=== PATIENT | male | born 1965 | race Caucasian/White ===

== ENCOUNTER 2018-02-12 09:16 | Outpatient (CLI) | payer MEDICAID ==
[2018-02-12] MEDS ORDERED: ISOVUE-370 76%-LOCM 1 ML ONE (11:00)
== END 2018-02-12 09:17 | disposition home or self-care (01) ==
LOC: BICCT 09:16
PROVIDERS: ATTEND Internal Medicine Hematology & Oncology
DX: C20 Malignant neoplasm of rectum (principal); R60.0 Localized edema
CPT/HCPCS: 74177

== ENCOUNTER 2018-04-30 09:10 | Day surgery (SDC) | payer OTHER ==
[2018-04-30] MEDS ORDERED: Sodium Chloride 0.9% 20 ML ONE (09:27)
[2018-04-30] MEDS ORDERED: Ondansetron 2MG/ML MDV 10 MG, Dexamethasone 10 MG in Sodium Chloride 0.9% 50 ML IVP SCH (09:30)
[2018-04-30] MEDS ORDERED: Atropine Sulfate 0.25 MG, Admixture Fee 1 EACH in Sodium Chloride 0.9% 50 ML IVPB SCH (09:30)
[2018-04-30] MEDS ORDERED: Fluorouracil 900 MG in Sodium Chloride 0.9% 50 ML IVPB SCH (09:30)
[2018-04-30] MEDS ORDERED: IRINOTECAN HCL IVPB SCH (09:30)
[2018-04-30] MEDS ORDERED: Leucovorin Calcium 50 MG in Sodium Chloride 0.9% 500 ML IVPB SCH (09:30)
[2018-04-30] MEDS ORDERED: SODIUM CHLORIDE 0.9% IVPB SCH (09:30)
[2018-04-30 09:44] VITALS: BP 152/79; TEMP 98.7
== END 2018-04-30 13:30 | disposition home or self-care (01) ==
LOC: ONC/OP 09:10
PROVIDERS: ATTEND Internal Medicine Hematology & Oncology
DX: Z51.11 Encounter for antineoplastic chemotherapy (principal); C20 Malignant neoplasm of rectum; K21.9 Gastro-esophageal reflux disease without esophagitis; E78.5 Hyperlipidemia, unspecified; E11.9 Type 2 diabetes mellitus without complications; I10 Essential (primary) hypertension; I25.10 Atherosclerotic heart disease of native coronary artery without angina pectoris; Z98.890 Other specified postprocedural states; Z95.1 Presence of aortocoronary bypass graft; Z87.891 Personal history of nicotine dependence; Z88.0 Allergy status to penicillin; Z79.82 Long term (current) use of aspirin; Z79.899 Other long term (current) drug therapy
CPT/HCPCS: 96367; 96413; 96416; 96417; A4216; J0461; J0640; J1100; J2405; J7050; J9190; J9206

== ENCOUNTER 2018-11-07 00:39 | Day surgery (SDC) | payer OTHER ==
[2018-11-07] MEDS ORDERED: Atropine Sulfate 0.25 MG, Admixture Fee 1 EACH in Sodium Chloride 0.9% 50 ML IVPB SCH (03:15)
[2018-11-07] MEDS ORDERED: Irinotecan 250 MG in Sodium Chloride 0.9% 500 ML IVPB SCH (03:30)
[2018-11-07] MEDS ORDERED: Fluorouracil 900 MG in Sodium Chloride 0.9% 50 ML IVPB SCH (03:30)
[2018-11-07] MEDS ORDERED: Leucovorin Calcium 50 MG in Sodium Chloride 0.9% 500 ML IVPB SCH (03:30)
[2018-11-07] MEDS ORDERED: Palonosetron HCl 0.25 MG in Sodium Chloride 0.9% 50 ML IVPB SCH (03:45)
[2018-11-07] MEDS ORDERED: Bevacizumab 500 MG in Sodium Chloride 0.9% 80 ML IVPB SCH (03:45)
[2018-11-07] MEDS ORDERED: Dexamethasone 10 MG in Sodium Chloride 0.9% 50 ML IVPB SCH (03:45)
[2018-11-07] MEDS ORDERED: PALONOSETRON HCL 0.05 MG/ML 5 ML VIAL IVP SCH (08:45)
[2018-11-07] MEDS ORDERED: Dexamethasone 10 MG/ML VIAL SLOW IVP SCH (08:45)
[2018-11-07] MEDS ORDERED: Sodium Chloride 0.9% 30 ML ONE (09:29)
[2018-11-07 11:02] VITALS: BP 97/56; TEMP 98.2
== END 2018-11-07 13:50 | disposition home or self-care (01) ==
LOC: ONC/OP 00:39
PROVIDERS: ATTEND Internal Medicine Hematology & Oncology
DX: Z51.11 Encounter for antineoplastic chemotherapy (principal); C20 Malignant neoplasm of rectum
CPT/HCPCS: 96367; 96375; 96413; 96416; 96417; J0461; J0640; J1100; J2469; J7050; J9035; J9190; J9206

== ENCOUNTER 2018-11-27 09:07 | Day surgery (SDC) | payer OTHER ==
[~2018-11-27 09:07] MED LIST: Atropine Sulfate 0.25 MG, Admixture Fee 1 EACH in Sodium Chloride 0.9% 50 ML IVPB SCH; Dexamethasone 10 MG in Sodium Chloride 0.9% 50 ML IVPB SCH; Fluorouracil 900 MG in Sodium Chloride 0.9% 50 ML IVPB SCH; IRINOTECAN IVPB SCH; Leucovorin Calcium 50 MG in Sodium Chloride 0.9% 500 ML IVPB SCH; Palonosetron HCl 0.25 MG in Sodium Chloride 0.9% 50 ML IVPB SCH; SODIUM CHLORIDE 0.9% IVPB SCH
[2018-11-27] MEDS ORDERED: Sodium Chloride 0.9% 20 ML ONE (09:12)
[2018-11-27 09:53] VITALS: BP 192/93
== END 2018-11-27 14:45 | disposition home or self-care (01) ==
LOC: ONC/OP 09:07
PROVIDERS: ATTEND Internal Medicine Hematology & Oncology
DX: Z51.11 Encounter for antineoplastic chemotherapy (principal); C20 Malignant neoplasm of rectum; Z88.0 Allergy status to penicillin
CPT/HCPCS: 96367; 96375; 96413; 96415; 96417; J0461; J0640; J1100; J2469; J7050; J9190; J9206

== ENCOUNTER 2018-12-25 11:59 | Day surgery (SDC) | payer OTHER ==
[~2018-12-25 11:59] MED LIST changes: +Bevacizumab 500 MG in Sodium Chloride 0.9% 80 ML IVPB SCH; -Dexamethasone 10 MG in Sodium Chloride 0.9% 50 ML IVPB SCH; +Dexamethasone 10 MG/ML VIAL SLOW IVP SCH; +PALONOSETRON HCL 0.05 MG/ML 5 ML VIAL IVP SCH; -Palonosetron HCl 0.25 MG in Sodium Chloride 0.9% 50 ML IVPB SCH
== END 2018-12-25 16:13 | disposition home or self-care (01) ==
LOC: ONC/OP 11:59
PROVIDERS: ATTEND Internal Medicine Hematology & Oncology
DX: Z51.11 Encounter for antineoplastic chemotherapy (principal); C20 Malignant neoplasm of rectum; Z88.0 Allergy status to penicillin
CPT/HCPCS: 80053; 82248; 82378; 83615; 84100; 84550; 96367; 96375; 96413; 96417; J0461; J0640; J1100; J2469; J7050; J9035; J9190; J9206

== ENCOUNTER 2019-01-15 09:03 | Day surgery (SDC) | payer OTHER ==
[2019-01-15] MEDS ORDERED: Sodium Chloride 0.9% 20 ML ONE (09:06)
[2019-01-15 09:40] VITALS: BP 175/84; TEMP 98
== END 2019-01-15 12:49 | disposition home or self-care (01) ==
LOC: ONC/OP 09:03
PROVIDERS: ATTEND Internal Medicine Hematology & Oncology
DX: Z51.11 Encounter for antineoplastic chemotherapy (principal); C20 Malignant neoplasm of rectum; Z88.0 Allergy status to penicillin
CPT/HCPCS: 96367; 96375; 96413; 96415; 96417; J0461; J0640; J1100; J2469; J3490; J7050; J9035; J9190; J9206

== ENCOUNTER 2019-01-21 09:22 | Outpatient (CLI) | payer OTHER ==
--- NOTE | 2019-01-21 11:11 | CT ---
CT ABDOMEN AND PELVIS WITH IV CONTRAST: Date: 01/21/19 PROVIDED CLINICAL HISTORY: Malignant neoplasm of rectum. FINDINGS: Comparison made with study dated 10/01/18. Interval development of small bilateral pleural effusions. The visualized lung bases are otherwise fr ee of significant opacity. Multiple stable hypodense hepatic lesions. No evidence for new lesion. The spleen, pancreas, kidneys, and adrenal glands demonstrate an unremarkable CT appearance. The previously described laureen hepatic and retroperitoneal lymph node prominence is redemonstrated, w ithout significant change. Postoperative changes are noted in the region of the rectosigmoid junction. There is prominence of th e mucosa in this region that may reflect post treatment change. There is mild stranding in the perire ctal fat, likely also post treatment in nature and appearing less conspicuous than on prior. There is no bowel dilatation, inflammatory fat stranding, or free fluid apparent. The osseous structu res demonstrate no concerning lytic or blastic lesions. Scattered vascular calcifications are seen. IMPRESSION: 1. Interval development of small bilateral pleural effusions. 2. No significant interval change involving hepatic metastatic lesions or abdominal lymph node enlar gement. POS: OFF
[2019-01-21] MEDS ORDERED: Iopamidol 370 76% 100 ML VIAL ONE (13:01)
== END 2019-01-21 09:23 | disposition home or self-care (01) ==
LOC: CT 09:22
PROVIDERS: ATTEND Internal Medicine Hematology & Oncology
DX: C18.9 Malignant neoplasm of colon, unspecified (principal); C78.7 Secondary malignant neoplasm of liver and intrahepatic bile duct; J90 Pleural effusion, not elsewhere classified
CPT/HCPCS: 74177; Q9967

== ENCOUNTER 2019-02-05 10:43 | Day surgery (SDC) | payer OTHER ==
[~2019-02-05 10:43] MED LIST changes: -Dexamethasone 10 MG/ML VIAL SLOW IVP SCH; -PALONOSETRON HCL 0.05 MG/ML 5 ML VIAL IVP SCH; +Palonosetron HCl 0.25 MG in Sodium Chloride 0.9% 50 ML IVPB SCH
[2019-02-05] MEDS ORDERED: Sodium Chloride 0.9% 20 ML ONE (11:37)
[2019-02-05 11:41] VITALS: BP 174/84; TEMP 97.9
[2019-02-05 13:31] LABS: Bilirubin Negative (Negative); Blood, Urine Moderate (Negative); Clarity CLEAR (Clear); Glucose, Urine (Dipstick) 250 mg/dL (Negative); Leukocyte Negative (Negative); Nitrite Negative (Negative); Protein, Urine (Dipstick) 300 mg/dL (Neg-Trace); Specific Gravity, Urine 1.017 (1.002-1.036); Urobilinogen 0.2 mg/dL (0.2-1.0)
[2019-02-05 13:33] LABS: Bacteria/HPF None Seen HPF (None Seen); Hyaline Casts/LPF 4-6 HYALINE CAST LPF (0-3 Hyaline); Pathc Cast-AUWi Flag 0.95 (0-2.49); Squamous Epithelial 0-3 HPF (0-3); WBC/HPF 0-3 HPF (0-3)
[2019-02-05 13:40] LABS: Renal Epithelial None Seen HPF (0-3); Transitional Epithelial NONE SEEN HPF (0-3)
== END 2019-02-05 16:15 | disposition home or self-care (01) ==
LOC: ONC/OP 10:43
PROVIDERS: ATTEND Internal Medicine Hematology & Oncology
DX: Z51.11 Encounter for antineoplastic chemotherapy (principal); C20 Malignant neoplasm of rectum; Z88.0 Allergy status to penicillin
CPT/HCPCS: 36415; 80053; 81003; 81015; 82248; 82378; 83615; 84100; 84550; 87086; 96367; 96375; 96413; 96417; J0461; J0640; J1100; J2469; J3490; J7050; J9035; J9190

== ENCOUNTER 2019-02-26 11:28 | Day surgery (SDC) | payer OTHER ==
[~2019-02-26 11:28] MED LIST changes: +Bevacizumab 100 MG, Bevacizumab 400 MG in Sodium Chloride 0.9% 80 ML IVPB SCH; -IRINOTECAN IVPB SCH; -SODIUM CHLORIDE 0.9% IVPB SCH
[2019-02-26] MEDS ORDERED: Sodium Chloride 0.9% 20 ML ONE (11:55)
[2019-02-26 13:01] VITALS: BP 195/95; TEMP 97.7
== END 2019-02-26 15:04 | disposition home or self-care (01) ==
LOC: ONC/OP 11:28
PROVIDERS: ATTEND Internal Medicine Hematology & Oncology
DX: Z51.11 Encounter for antineoplastic chemotherapy (principal); C20 Malignant neoplasm of rectum; Z88.0 Allergy status to penicillin
CPT/HCPCS: 36415; 80053; 82248; 82378; 83615; 84100; 84550; 96367; 96375; 96413; 96417; J0461; J0640; J1100; J2469; J3490; J7050; J9035; J9190

== ENCOUNTER 2019-03-26 10:09 | Day surgery (SDC) | payer OTHER ==
[~2019-03-26 10:09] MED LIST changes: -Atropine Sulfate 0.25 MG, Admixture Fee 1 EACH in Sodium Chloride 0.9% 50 ML IVPB SCH; -Bevacizumab 500 MG in Sodium Chloride 0.9% 80 ML IVPB SCH
[2019-03-26] MEDS ORDERED: Sodium Chloride 0.9% 20 ML ONE (10:16)
== END 2019-03-26 14:49 | disposition home or self-care (01) ==
LOC: ONC/OP 10:09
PROVIDERS: ATTEND Internal Medicine Hematology & Oncology
DX: Z51.11 Encounter for antineoplastic chemotherapy (principal); C20 Malignant neoplasm of rectum; K21.9 Gastro-esophageal reflux disease without esophagitis; E78.5 Hyperlipidemia, unspecified; I10 Essential (primary) hypertension; E11.9 Type 2 diabetes mellitus without complications; I25.10 Atherosclerotic heart disease of native coronary artery without angina pectoris; Z87.891 Personal history of nicotine dependence; Z79.4 Long term (current) use of insulin; Z79.82 Long term (current) use of aspirin; Z79.899 Other long term (current) drug therapy; Z88.0 Allergy status to penicillin; Z95.1 Presence of aortocoronary bypass graft; Z98.890 Other specified postprocedural states
CPT/HCPCS: 36415; 80053; 82248; 82378; 83615; 84100; 84550; 96367; 96375; 96413; 96417; J0640; J1100; J2469; J3490; J7050; J9035; J9190

== ENCOUNTER 2019-04-22 08:11 | Outpatient (CLI) | payer OTHER ==
--- NOTE | 2019-04-22 09:17 | CT ---
CT ABDOMEN AND PELVIS WITH ORAL AND IV CONTRAST: HISTORY: Malignant neoplasm of rectum COMPARISON: 01/21/2019 FINDINGS: Small bilateral pleural effusions are again seen within mild interval increase in size of the left pl eural effusion. Multiple hypodense hepatic lesions are stable. No new liver lesions are seen. The spleen, pancreas, a drenal glands and kidneys are unremarkable. Deena hepatic and retroperitoneal lymph node prominence is stable. No free air is seen. No ascites is noted. Postop changes in the region of the rectosigmoid are again seen with mild stranding in the perirectal fat which is stable. There is edema in the wall of the gallbladder which is new. The small bowel loops are not abnormally dilated. A normal-appearing appendix is present. There are vascular calcifications without evidence of aneurysmal dilatation of the abdominal aorta. T here are degenerative changes in the spine. No osteolytic or osteoblastic lesions are noted. IMPRESSION: 1. Mild interval increase in the size of the left pleural effusion since 01/21/2019. 2. Edema in the wall of the gallbladder. If there is concern for acute cholecystitis evaluation with ultrasound and HIDA scan would be helpful. 3. Stable hepatic metastatic disease.
[2019-04-22] MEDS ORDERED: Iopamidol 370 76% 100 ML VIAL ONE (14:44)
== END 2019-04-22 08:12 | disposition home or self-care (01) ==
LOC: CT 08:11
PROVIDERS: ATTEND Internal Medicine Hematology & Oncology
DX: C20 Malignant neoplasm of rectum (principal); J90 Pleural effusion, not elsewhere classified; C78.7 Secondary malignant neoplasm of liver and intrahepatic bile duct; K82.8 Other specified diseases of gallbladder
CPT/HCPCS: 74177; 82565; Q9967

== ENCOUNTER 2019-07-16 11:00 | Day surgery (SDC) | payer OTHER ==
[~2019-07-16 11:00] MED LIST changes: +Atropine Sulfate 0.25 MG in Sodium Chloride 0.9% 50 ML IVPB SCH
[2019-07-16 11:50] VITALS: BP 149/74; TEMP 98.1
== END 2019-07-16 14:22 | disposition home or self-care (01) ==
LOC: ONC/OP 11:00
PROVIDERS: ATTEND Internal Medicine Hematology & Oncology
DX: Z51.11 Encounter for antineoplastic chemotherapy (principal); C20 Malignant neoplasm of rectum; Z88.0 Allergy status to penicillin
CPT/HCPCS: 36415; 80053; 82248; 82378; 83615; 84100; 84550; 96375; 96413; 96416; 96417; J0461; J1100; J2469; J3490; J9035; J9190

== ENCOUNTER 2019-07-29 19:10 | Inpatient (IN) | payer OTHER ==
[~2019-07-29 19:10] MED LIST changes: -Atropine Sulfate 0.25 MG in Sodium Chloride 0.9% 50 ML IVPB SCH; -Bevacizumab 100 MG, Bevacizumab 400 MG in Sodium Chloride 0.9% 80 ML IVPB SCH; -Fluorouracil 900 MG in Sodium Chloride 0.9% 50 ML IVPB SCH; +Iopamidol 370 76% 100 ML VIAL ONE; -Leucovorin Calcium 50 MG in Sodium Chloride 0.9% 500 ML IVPB SCH; -Palonosetron HCl 0.25 MG in Sodium Chloride 0.9% 50 ML IVPB SCH
[2019-07-29 19:35] LABS: #Eosinphils 0.3 thou/uL (0.0-0.7); #Monocytes 0.5 thou/uL (0.11-0.59); %Basophils 0.4 % (0.0-1.0); %Eosinophils 3.4 % (0.0-10.0); %Lymphocytes 11.3 % (21.0-51.0); %Monocytes 5.8 % (0.0-10.0); %Neutrophils 79.2 % (42.0-75.0); Hemoglobin 10.6 g/dL (14.0-18.0); Mean Corpuscular HGB CONC 32.2 g/dL (32.0-36.0); Mean Corpuscular Hemoglobin 28.5 pg (27.0-31.0); Mean Corpuscular Volume 88.4 fL (78.0-98.0); Mean Platelet Volume 7.9 fL (7.4-10.4); Platelet Count 223 thou/uL (130-400); RBC Distribution Width 17.3 % (11.5-14.5); Red Blood Cell (RBC) Count 3.72 mill/uL (4.70-6.10); White Blood Cell (WBC) Count 8.9 thou/uL (4.8-10.8)
[2019-07-29 19:42] LABS: PTT 34.4 SEC (22.9-36.1); Prothrombin Time 13.3 SEC (12.0-14.7)
--- NOTE | 2019-07-29 19:44 | CT ---
HEAD CT WITHOUT CONTRAST: 07/29/19 COMPARISON: 08/26/17 HISTORY: Right sided numbness and hypertension. TECHNIQUE: Axial CT imaging at 5 mm intervals from vertex through skull base without contrast. FINDINGS: No intracranial hemorrhage, midline shift, mass effect or ventricular enlargement. Imaged paranasal s inuses and mastoid air cells are unremarkable. IMPRESSION: No acute findings. Results called to Dr. Jaime at 7:34 p.m., 07/29/19. Code CESAR POS: KERRI
[2019-07-29 19:47] LABS: ALT (SGPT) 9 U/L (8-55); AST (SGOT) 13 U/L (5-34); Albumin 2.8 g/dL (3.5-5.0); Alkaline Phosphatase 114 U/L (40-110); Anion Gap 11 mmol/L (10-20); BUN (Urea Nitrogen) 25 mg/dL (8.4-25.7); Bilirubin, Total 0.4 mg/dL (0.2-1.2); CK (CPK) 90 U/L (30-200); Calc. Creatinine Clearance 0 mL/min (70-130); Calcium 8.5 mg/dL (7.8-10.44); Carbon Dioxide 24 mmol/L (22-29); Chloride 108 mmol/L (98-107); Estimated GFR-MDRD 40; Globulin 3.4 g/dL (2.4-3.5); Glucose 76 mg/dL (70-105); Lipase 19 U/L (8-78); Potassium 4.3 mmol/L (3.5-5.1); Protein, Total 6.2 g/dL (6.0-8.3); Sodium 139 mmol/L (136-145)
--- NOTE | 2019-07-29 19:50 | RAD ---
Chest one view HISTORY: Altered mental status. Dyspnea. COMPARISON: 10/01/2018. FINDINGS: Cardiac silhouette is magnified by projection. Pulmonary vasculature upper limits of normal . Mediastinum is midline with postoperative changes and a right internal jugular Port-A-Cath. No confluent airspace consolidation or evidence of pneumothorax. IMPRESSION: Borderline pulmonary vascular prominence. No florid edema.
[2019-07-29] MEDS ORDERED: hydrALAZINE 20 MG/ML VIAL ONE ×2 (19:54→20:33)
[2019-07-29] MEDS ORDERED: Aspirin Chewable 81 MG TAB ONE (19:54)
[2019-07-29] MEDS ORDERED: Nitroglycerin 2% Ointment 1 INCH/1 GM Packet ONE (20:33)
--- NOTE | 2019-07-29 21:31 | PDOC.FPRHP ---
- History of Present Illness Chief Complaint: Right-sided numbness History of Present Illness: 53yo CM with h/o colon cancer currently undergoing chemotherapy, DMII, CAD s/p CABG in 2016, CHF, and CKD who presents for right-sided numbness. States 3 hours ago started having right sided face and right arm numbness. Pt has neuropathy in his fingers but reports the numbness is new. Pt reports still having numbness. Pt denies any weakness. Pt reports pain in his face and arm describing as tingling sensation. Pt reports center of back below neck has been hurting. Pt reports having chest pressure for the last 5-6 days. Reports similar to heart attack in the past. Denies any n/v. Chest pressure made worse with movement. Pt reports being SOB all the time, no acute changes. Pt reports using 5 pillows to sleep upright, however no acute changes. Denies any swelling in his legs or feet. Pt reports being legally blind. Pt reports always seeing floaters. Pt denies any speech trouble. Pt reports being real sweaty yesterday. Pt reports having thoughts of suicide in past but not actively suicidal. States he is on medication and it is being controlled at this time. Actively on chemo for colon cancer, 3 weeks ago last tx. Had colonoscopy a few weeks ago and everything was reported as normal. Pt reports after CABG he had to wear life vest for some time. Sees Dr. Powell who told him it has gotten better. ED Course: CT head negative, SBP 220 given hydralazine x2 with improvement to SBP 171. Family medicine called for admission. - Allergies/Adverse Reactions Allergies Allergy/AdvReac Type Severity Reaction Status Date / Time Penicillins Allergy Verified 04/30/18 09:19 - Home Medications Medication Instructions Recorded Confirmed Type Acetaminophen [Tylenol] 650 mg PO Q8H PRN 07/30/19 07/30/19 History Calcium Carbonate [Tums] 1,000 mg PO PRN PRN 07/30/19 07/30/19 History Gabapentin [Neurontin] 300 mg PO TID 07/30/19 07/30/19 History LORazepam [Lorazepam] 07/30/19 History Loperamide HCl [Imodium] 07/30/19 History Ondansetron [Zofran ODT] 8 mg PO Q8HR 07/30/19 07/30/19 History diphenhydrAMINE [Benadryl] 25 mg PO Q6HR PRN 07/30/19 07/30/19 History glipiZIDE [Glipizide] 5 mg PO DAILY 07/30/19 07/30/19 History Comments: Pt unsure of home medications. States his exwife knows his medications and can provide a list in the AM. - History PMHx: Active metastatic Colon cancer, DMII, CAD w 3v CABG (2015), peripheral neuropathy, depression with h/o SI. CKD. H/o staph bacteremia in 2018. PSHx: Floating Testicle descent, Colectomy, Knee Surgery for Staph infection. Right mediport. FHx: HTN. Breast ca in mother. Stroke and NE in father. Social: Smokes 5-6 cigarettes a day 30+py history. Denies any alcohol use, Reports hx of alcohol abuse but reports cutting back since heart attack. Denies any illicit drug use. Pt reports being full code - Review of Systems General: reports: fatigue. denies: fever/chills, weight/appetite/sleep changes , night sweats Eyes: reports: other (Pt has chronic vision changes. Denies any acute changes). denies: eye pain, vision changes ENT: denies: nasal congestion, rhinorrhea Respiratory: reports: shortness of breath (Reports as chronic), exercise intolerance. denies: cough, congestion Cardiovascular: reports: chest pain (Reports chest pressure). denies: palpitation, edema, paroxysmal nocturnal dyspnea, orthopnea Gastrointestinal: reports: diarrhea (Chronic problem). denies: nausea, vomiting , constipation, abdominal pain, GI bleeding Genitourinary: denies: incontinence, dysuria Skin: denies: rashes, lesions Musculoskeletal: reports: pain (Reports pain in center of his back below neck.) . denies: tenderness, swelling Neurological: reports: numbness (In right side of face and right arm.). denies : seizure, weakness Psychological: reports: depression (Pt reports having thoughts of suicide in recent past but is being tx with medication.). denies: anxiety - Vital signs BP: [182/82] HR: [76] RR: [18] Tmax: [98.3] Pox: [100]% on [RA] Wt: [109kg] - Physical Exam Constitutional: NAD, awake, alert and oriented, well developed HEENT: MMM, oropharynx clear Neck: supple, trachea midline Chest: other (Right mediport in place.) Heart: RRR, normal S1/S2, no murmurs/rubs/gallops, pulses present, no edema Lungs: CTAB, no respiratory distress, good air movement, no rales/rhonchi, no wheezing Abdomen: soft, non-tender, bowel sounds present, no masses/distention, no hernias Musculoskeletal: normal structure, normal tone, other (5/5 strength throughout) Neurological: no focal deficit, CN II-XII intact, normal sensation (reports numbness of RUQ and face however endorses BL equal and full sensation on exam), other (no dysmetria or dysdiadokinesia.) Skin: no rash/lesions Heme/Lymphatic: no unusual bruising or bleeding Psychiatric: other (depression, stable, no active SI/HI) FMR H&P: Results - Labs Result Diagrams: 07/29/19 19:21 07/29/19 19:21 Lab results: WBC 8.9 thou/uL (4.8-10.8) 07/29/19 19:21 Hgb 10.6 g/dL (14.0-18.0) L 07/29/19 19:21 Hct 32.9 % (42.0-52.0) L 07/29/19 19:21 MCV 88.4 fL (78.0-98.0) 07/29/19 19:21 Plt Count 223 thou/uL (130-400) 07/29/19 19:21 Neutrophils % 79.2 % (42.0-75.0) H 07/29/19 19:21 Sodium 139 mmol/L (136-145) 07/29/19 19:21 Potassium 4.3 mmol/L (3.5-5.1) 07/29/19 19:21 Chloride 108 mmol/L (98-107) H 07/29/19 19:21 Carbon Dioxide 24 mmol/L (22-29) 07/29/19 19:21 BUN 25 mg/dL (8.4-25.7) 07/29/19 19:21 Creatinine 1.80 mg/dL (0.7-1.3) H 07/29/19 19:21 Glucose 76 mg/dL (70-105) 07/29/19 19:21 Calcium 8.5 mg/dL (7.8-10.44) 07/29/19 19:21 Total Bilirubin 0.4 mg/dL (0.2-1.2) 07/29/19 19:21 AST 13 U/L (5-34) 07/29/19 19:21 ALT 9 U/L (8-55) 07/29/19 19:21 Alkaline Phosphatase 114 U/L (40-110) H 07/29/19 19:21 Creatine Kinase 90 U/L (30-200) 07/29/19 19:21 CK-MB (CK-2) 2.0 ng/mL (0-6.6) 07/29/19 19:21 B-Natriuretic Peptide 1425.7 pg/mL (0-100) H 07/29/19 19:21 Serum Total Protein 6.2 g/dL (6.0-8.3) 07/29/19 19:21 Albumin 2.8 g/dL (3.5-5.0) L 07/29/19 19:21 Lipase 19 U/L (8-78) 07/29/19 19:21 - Radiology Interpretation Chest x-ray Status: report reviewed by me (mild pulmonary vascular promenence) FMR H&P: A/P - Problem List (1) Atypical chest pain Current Visit: Yes Status: Acute Code(s): R07.89 - OTHER CHEST PAIN (2) TIA (transient ischemic attack) Current Visit: Yes Status: Suspected Code(s): G45.9 - TRANSIENT CEREBRAL ISCHEMIC ATTACK, UNSPECIFIED (3) CHF (congestive heart failure) Current Visit: Yes Status: Chronic Code(s): I50.9 - HEART FAILURE, UNSPECIFIED (4) CAD (coronary artery disease) Current Visit: Yes Status: Acute Code(s): I25.10 - ATHSCL HEART DISEASE OF [place] CORONARY ARTERY W/O ANG PCTRS Qualifiers: Coronary Disease-Associated Artery/Lesion type: bypass graft, autologous artery Associated angina: with stable angina Qualified Code(s): I25.728 - Atherosclerosis of autologous artery coronary artery bypass graft(s) with other forms of angina pectoris (5) DMII (diabetes mellitus, type 2) Current Visit: Yes Status: Chronic Qualifiers: Diabetes mellitus complication status: with neurologic complications Diabetes mellitus complication detail: with polyneuropathy (6) Colon cancer Current Visit: Yes Status: Chronic Code(s): C18.9 - MALIGNANT NEOPLASM OF COLON, UNSPECIFIED (7) HTN (hypertension) Current Visit: Yes Status: Chronic Code(s): I10 - ESSENTIAL (PRIMARY) HYPERTENSION (8) PRATEEK (acute kidney injury) Current Visit: Yes Status: Acute Code(s): N17.9 - ACUTE KIDNEY FAILURE, UNSPECIFIED (9) Depression Current Visit: Yes Status: Chronic Code(s): F32.9 - MAJOR DEPRESSIVE DISORDER, SINGLE EPISODE, UNSPECIFIED - Plan 53yo CM with h/o colon cancer currently undergoing chemotherapy, DMII, CAD s/p CABG in 2016, CHF, and CKD who presents for right-sided numbness. #TIA vs CVA - RUE and R-facial numbness/paresthesias - Neuro exam unremarkable - CT head no acute bleed - MRI in AM - FLP, A1C, TSH - Admit to neuro with neuro checks - Carotid dopplers in AM - consider neurology consult in AM pending workup - ASA 81mg daily - Permissive HTN of <220/110, prn hydralazine, restart home BP meds after 48 hours. - Consider high intensity statin pending workup in AM. #Atypical Chest Pain - Chest pressure x5d - h/o CAD - likely 2/2 mild CHF exacerbation - will trend trops - consider cards consult in AM, known to Dr. Kellogg - monitor on telemetry #Elevated troponin - Trop 0.029 - likely 2/2 CKD and CHF - Will trend #Elevated D-Dimer - D-dimer 2.25 - high risk for DVT/PE 2/2 malignancy, immobility - SOB and CP, VSS - Will order CTA for PE r/o, will consider LE doppler US if negative #PRATEEK on CKD IIIa - known CKD IIIa - Cr. 1.8, previously baseline of 1.5 - likely 2/2 CHF exacerbation and third spacing - IVF lasix x1, reeval in AM and consider continuation #CHF with mild exacerbation - Reports his EF was as low as 30%, wore a life vest at one point - will repeat ECHO - Consider Cards consult, known to Dr. Kellogg - BNP elevated to 1400, physical exam does not demonstrate fluid overload - Will give lasix 40mg IV x1 now and monitor #Colon cancer - mets to lymph nodes per pt, recent endoscopy that was "clear" actively undergoing chemotherapy [id number] - Dr. Terrell is Oncologist #CAD s/p 3v CABG in 2016 - Known to Dr. Kellogg - will restart home meds once reconciled #DMII - Hyperglycemic protocol, ACHS accuchecks, mild SSI - Will check A1C - Will restart home meds once reconciled #Depression - on home antidepressants, unsure of name of medication, will restart once home meds reconciled - currently stable with no SI #Tob abuse - 30+ py smoking history, counseled on cessation Code: Full - daughter Iesha Nicholas is MPoA VTE: Lovenox Diet: NPO at midnight for possibly cardiac intervention IVF: SL PCP: [facility] Disposition/LOS: Admit to stroke obs for atypical chest pain and TIA vs CVA. Trending trops, monitoring on tele. MRI in AM. CTA chest for PE r/o. Anticipate hospitalization < 48hours pending workup. FMR H&P: Upper Level - Pertinent history I was present with the art gallery internship during the HPI. See above HPI. I scribed the above document and made edits as needed. Pt comes in with somewhat complicated hx. Pt having R. sided numbness and having chest pressure. R. sided numbness new and acute for last few hours. Chest pain has been going on for 6 days. - Pertinent findings Neuro: CN 2-12 grossly intact. Pt reports sensation intact bilaterally in both Upper and Lower Extremities. Strength 5/5 in Upper and lower extremities bilaterally. Chest: Pain not reproducible to palpation Cardio: RRR, no murmurs or gallops Resp: CTA-B, no wheezes or crackles. Pt has some audible distress when talking. Pt tires easily Abdomen: NTTP, No masses noted. - Plan Date/Time: 07/29/192127 I, Michael Fuentes, PGY-3, have evaluated this patient and agree with findings/ plan as outlined by art gallery internship resident. Pertinent changes/additions are listed here. See above for detailed plan. I made edits to plan as above. Pt history is complicated as reports numbness but on physical exam there is no numbness reported by patient. At this time we will admit for TIA workup. CT head neg. Will get dopplers and MRI in AM. Pt having elevated BP to 180-190's. At this time will allow for permissive htn. Yet, pt has been reporting 5-6 day hx chest pressure. Reports some increased SOB at times. Pt trop is indeterminate. Pt having some atypical chest pain. Will trend trops. If pt continues to have more elevated BP and chest pressure we may tx pt more for chest pain and tx for hypertension urgency. Pt is not a very good historian. See above for detailed plan. Addendum - Attending - Attending Attestation Date/Time: 07/29/19 8712 I personally evaluated the patient and discussed the management with Dr. Bernal/ Gina. I agree with the History, Examination, Assessment and Plan documented above with any addition or exceptions noted below. 53 yo WM PMH CAD s/p CABG x3vz, uncontrolled DM2, CKD3, colorectal cancer currently undergoing chemotherapy. Presents with CC of chest pain and right arm and face numbness. States pain has been occurring for several days. Numbness started this evening. BP has been elevated. Daughter states he has had difficulty in the past with labile BP. Had been taken off meds for a while due to severe orthostatic hypotension. Has been intolerant of ACEI and ARBs. BP now consistently elevated. Exam unremarkable. CN 2-12 intact. Upper and lower extremity strength 5/5 in major muscle groups. Sensation bilaterally uniform throughout all regions. patient reports chronic diabetic neuropathy in his feet and lower legs. labs remarkable for elevated BNP, Cr above baseline at 1.8, Trop indeterminent, EKG unremarkable, CXR No acute processes, CTA (read pending ) shows left pleural effusion, no obvious filling defects. observation for TIA vs CVA r/o and CHF exacerbation, will allow permissive HTN for now but if his chest pain worsens, will attempt to lower BP. IV lasix for CHF, Trend labs, TTE tomorrow, consider cardiology consultation, MRI brain, carotid dopplers. observation, stroke <2 midnights.
[2019-07-29 22:43] LABS: Bacteria/HPF None Seen HPF (None Seen); Bilirubin Negative (Negative); Blood, Urine 2+ (Negative); Clarity Clear (Clear); Glucose, Urine (Dipstick) 100 mg/dL (Negative); Leukocyte Negative Leu/uL (Negative); Nitrite Negative (Negative); Protein, Urine (Dipstick) 300 mg/dL (Neg-Trace); Squamous Epithelial None Seen HPF (0-3); Urobilinogen Normal mg/dL (Less than 2); WBC/HPF 0-3 HPF (0-3)
[2019-07-29 22:56] LABS: Troponin I 0.035 ng/mL (< 0.028)
--- NOTE | 2019-07-30 | CT ---
CT arteriogram chest with IV contrast and 3-D imaging HISTORY: Chest pain. FINDINGS: There is good contrast opacification of the pulmonary arteries and thoracic aorta with norm al branching of the great vessels at the aortic arch. Postoperative changes mediastinum. Nonspecific scattered lymph nodes. Small amount of left pleural fluid with mild left basilar atelectasis and scattered areas of mild per ipheral scarring and atelectasis within each lung. No pneumothorax or lobar consolidation. Within the partially visualized upper abdomen, the gallbladder is again shown to be incompletely dist ended. Internal hyperdense material with small amount of pericholecystic fluid. Appearance is similar to prior CT abdomen exams. There are degenerative changes of thoracic spine. IMPRESSION: No CT evidence of pulmonary embolus. Small amount of left pleural fluid and other chronic-type findings are stable.
[2019-07-30] MEDS ORDERED: Ondansetron ODT 4 MG TAB SL PRN (02:20)
[2019-07-30] MEDS ORDERED: Ondansetron PF 4 MG/2 ML Vial IVP PRN (02:20)
[2019-07-30] MEDS ORDERED: hydrALAZINE 20 MG/ML VIAL SLOW IVP PRN (02:21)
[2019-07-30] MEDS ORDERED: Sodium Chloride 0.9% 1,000 ML IV SCH (02:30)
[2019-07-30] MEDS ORDERED: HumaLOG 300 UNITS/3 ML VIAL SC PRN ×2 (02:43)
[2019-07-30] MEDS ORDERED: Dextrose 5% in Water 1,000 ML IV PRN (02:43)
[2019-07-30] MEDS ORDERED: Dextrose 50% Abboject 50 ML SYRINGE SLOW IVP PRN (02:43)
[2019-07-30] MEDS ORDERED: Calcium Carbonate 500 MG ChewTAB PO PRN (02:43)
[2019-07-30] MEDS ORDERED: Enoxaparin Sodium 40 MG/0.4 ML SYRINGE SC SCH (02:43)
[2019-07-30] MEDS ORDERED: Furosemide 40 MG/4 ML VIAL SLOW IVP SCH ×2 (02:43→09:00)
[2019-07-30 02:52] VITALS: BMI 31.9
[2019-07-30 02:59] LABS: Troponin I 0.023 ng/mL (< 0.028)
[2019-07-30] MEDS: Acetaminophen 325 MG TAB PO PRN ×3 (03:37→16:48)
[2019-07-30 06:20] LABS: #Eosinphils 0.3 thou/uL (0.0-0.7); #Monocytes 0.7 thou/uL (0.11-0.59); #Neutrophils 6.9 thou/uL (1.40-6.50); %Basophils 0.2 % (0.0-1.0); %Eosinophils 3.1 % (0.0-10.0); %Lymphocytes 11.5 % (21.0-51.0); %Monocytes 7.4 % (0.0-10.0); %Neutrophils 77.8 % (42.0-75.0); Hemoglobin 9.2 g/dL (14.0-18.0); Mean Corpuscular HGB CONC 31.8 g/dL (32.0-36.0); Mean Corpuscular Hemoglobin 27.7 pg (27.0-31.0); Mean Corpuscular Volume 87.2 fL (78.0-98.0); Mean Platelet Volume 7.9 fL (7.4-10.4); Platelet Count 189 thou/uL (130-400); RBC Distribution Width 17.3 % (11.5-14.5); Red Blood Cell (RBC) Count 3.33 mill/uL (4.70-6.10); White Blood Cell (WBC) Count 8.8 thou/uL (4.8-10.8)
--- NOTE | 2019-07-30 06:20 | PDOC.FM ---
- Subjective Subjective: Pt reports he is continuing to have the numbness in his left hand, left face, and now is moving to his right hand. He reports no new changes in weakness. His chest pain is not currently present but comes and goes. He states it started when he was laying down. It feels like a pressure and reminds him of his OH in the past. - Objective MAR Reviewed: Yes Vital Signs & Weight: Vital Signs (12 hours) Temp Pulse Resp BP Pulse Ox 07/30/19 04:00 99.7 F H 74 14 170/67 H 95 07/30/19 01:32 99 F 76 20 142/66 H 97 Weight Weight 109.815 kg Result Diagrams: 07/30/19 05:43 07/30/19 05:43 Phys Exam - Physical Examination Constitutional: NAD HEENT: moist MMs Neck: no JVD Respiratory: no wheezing, clear to auscultation bilateral Cardiovascular: RRR, no significant murmur Gastrointestinal: soft, non-tender, no distention, positive bowel sounds Musculoskeletal: no edema, pulses present Neurological: moves all 4 limbs No focal weakness, proprioception is intact, normal cerebellar function different/decreased sensation on left arm and left face Psychiatric: normal affect, A&O x 3 Skin: cap refill <2 seconds Dx/Plan (1) PRATEEK (acute kidney injury) Code(s): N17.9 - ACUTE KIDNEY FAILURE, UNSPECIFIED Status: Acute (2) Atypical chest pain Code(s): R07.89 - OTHER CHEST PAIN Status: Acute (3) CAD (coronary artery disease) Code(s): I25.10 - ATHSCL HEART DISEASE OF [place] CORONARY ARTERY W/O ANG PCTRS Status: Acute Qualifiers: Coronary Disease-Associated Artery/Lesion type: bypass graft, autologous artery Associated angina: with stable angina Qualified Code(s): I25.728 - Atherosclerosis of autologous artery coronary artery bypass graft(s) with other forms of angina pectoris (4) CHF (congestive heart failure) Code(s): I50.9 - HEART FAILURE, UNSPECIFIED Status: Chronic (5) Colon cancer Code(s): C18.9 - MALIGNANT NEOPLASM OF COLON, UNSPECIFIED Status: Chronic (6) DMII (diabetes mellitus, type 2) Status: Chronic Qualifiers: Diabetes mellitus complication status: with neurologic complications Diabetes mellitus complication detail: with polyneuropathy (7) Depression Code(s): F32.9 - MAJOR DEPRESSIVE DISORDER, SINGLE EPISODE, UNSPECIFIED Status : Chronic (8) HTN (hypertension) Code(s): I10 - ESSENTIAL (PRIMARY) HYPERTENSION Status: Chronic (9) TIA (transient ischemic attack) Code(s): G45.9 - TRANSIENT CEREBRAL ISCHEMIC ATTACK, UNSPECIFIED Status: Suspected - Plan Plan: This is a 53 yo male with a pmh of HTN, DM2, CAD, CHF, CKD TIA vs CVA -RUE with R-facial numbness/paresthesias -CT negative -Pending AM MRI -FLP, A1c, TSH -CTA head in AM -Continue aspirin and add on atorvastatin -Continue permissive HTN until this evening Atypical chest pain -Troponins trending down Elevated troponin -Trending down to 0.023 -Likely demand Elevated D-Dimer -CTA negative for PE PRATEEK on CKD3 -Will monitor with BMP -Likely 2/2 CHF HFrEF -Echo in 11/2017 shows EF of 30-35% -Pt has seen Dr. Kellogg in the past -Likely would benefit from outpt follow up -Continue IV lasix Colon Cancer -Currently undergoing chemotherapy -Dr. Terrell is oncologist CAD s/p CABG in 2016 DM2 -Hyper/hypoglycemic protocol in place, ACHS accuchecks, mild SSI -Pending A1c -Continue home medications Depression -Continue home meds Tobacco abuse -Nicotine patch, counseled on cessation Addendum - Attending - Attending Attestation Date/Time: 07/30/19 4944 I personally evaluated the patient and discussed the management with Dr. Fall. I agree with the History, Examination, Assessment and Plan documented above with any addition or exceptions noted below. He has chest pain that is the same as prior to his cabg. Will d/w cardiology.
[2019-07-30 06:26] LABS: Hemoglobin A1c 5.7 % (4.0-6.0)
[2019-07-30 06:50] LABS: ALT (SGPT) 7 U/L (8-55); AST (SGOT) 11 U/L (5-34); Albumin 2.5 g/dL (3.5-5.0); Alkaline Phosphatase 98 U/L (40-110); Anion Gap 10 mmol/L (10-20); BUN (Urea Nitrogen) 27 mg/dL (8.4-25.7); Bilirubin, Total 0.3 mg/dL (0.2-1.2); Calc. Creatinine Clearance 74 mL/min (70-130); Carbon Dioxide 23 mmol/L (22-29); Cardiac Risk 5.3 (Less than 4.5); Chloride 108 mmol/L (98-107); Cholesterol 133 mg/dl (< 200 Desired); Estimated GFR-MDRD 40; Glucose 83 mg/dL (70-105); HDL Cholesterol 25 mg/dL (>60 Neg Risk); LDL Cholesterol, Calculated 86 mg/dL; Potassium 3.7 mmol/L (3.5-5.1); Protein, Total 5.5 g/dL (6.0-8.3); Sodium 137 mmol/L (136-145); Triglycerides 108 mg/dL (Less than 150)
--- NOTE | 2019-07-30 08:29 | ULT ---
EXAM: Bilateral lower extremity venous Doppler US HISTORY: bilateral lower extremity edema and pain FINDINGS: Grayscale, color-flow, Doppler evaluation, spectral analysis of the bilateral lower extremities venou s structures is performed with 2-D imaging. The bilateral common femoral, superficial femoral, popliteal, posterior tibial, proximal greater saphenous and profunda femoral veins are imaged. There is normal luminal compressibility, flow, and augmentation in the visualized deep venous structu res of the bilateral lower extremities. IMPRESSION: No evidence of a deep vein thrombosis in either lower extremity.
[2019-07-30] MEDS ORDERED: FLU VACC QS2019-20(6MOS UP)/PF 60 MCG/0.5 ML SYRINGE IM ONE (09:00)
[2019-07-30] MEDS ORDERED: Prevnar 13-Val Conj/PF 0.5 ML SYRINGE IM ONE (09:00)
[2019-07-30] MEDS: Citalopram 20 MG TAB PO SCH (10:25)
[2019-07-30] MEDS: Aspirin 81 mg Enteric Coated Tablet PO SCH (10:25)
[2019-07-30] MEDS: Gabapentin 300 MG CAP PO SCH ×3 (10:25→20:41)
[2019-07-30] MEDS: Ondansetron PF 4 MG/2 ML Vial IVP PRN (10:36)
[2019-07-30] MEDS ORDERED: Lorazepam 1 MG TAB PO SCH (11:45)
--- NOTE | 2019-07-30 14:09 | MRI ---
Brain MRI without contrast: 07/30/2019 COMPARISON: 03/31/2016 History: Right-sided numbness and hypertension, stroke TECHNIQUE: Multiplanar multisequence MR imaging of the brain obtained without contrast FINDINGS: There is a subcentimeter focus of restricted diffusion measuring approximately 6 mm just po sterior and lateral to the dorsal aspect of the putamen on the right. There is an additional focus of restricted diffusion within the posterior lateral aspect of the thalamus on the left measuring 4 m m. These findings are consistent with foci of acute infarction. Detailed assessment of the brain parenchyma is markedly limited secondary to persistent head motion a rtifact. The axial gradient echo imaging demonstrates no evidence for intracranial hemorrhage. No midline shif t. No ventricular enlargement. IMPRESSION: 2 subcentimeter foci of acute infarction are noted, one just lateral and posterior to the right putamen and one within the posterior lateral aspect of the left thalamus. Evaluation is significantly limited on the basis of significant head motion artifact.
--- NOTE | 2019-07-30 14:48 | CON ---
DATE OF CONSULTATION: ADDENDUM: HISTORY OF PRESENT ILLNESS: Mr. Rivero did have a brain MRI performed this morning. He did have acute stroke present in the lateral and posterior to the right putamen and one within the posterolateral aspect of the left thalamus. Given the findings of a recent stroke, we would recommend to continue conservative therapy. Job ID: [id number]
--- NOTE | 2019-07-30 14:51 | CON ---
DATE OF CONSULTATION: 07/30/2019 REASON FOR CONSULTATION: Atypical chest pain. HISTORY OF PRESENT ILLNESS: Mr. Rivero is a 53-year-old gentleman who has history of CAD, status post bypass surgery in addition to metastatic colon cancer. He states he was visiting his , who came in with chest pain and shortness of breath. He then developed right arm paresthesia and right facial numbness. He was seen and evaluated in the emergency room and was subsequently admitted. He also complained of a chest tightness noted across his chest. This is associated with abdominal discomfort noted in the lower abdomen region. Mr. Rivero's hemoglobin has been 9.2 with a creatinine of 1.77. His initial CK troponin was negative. His EKG was felt to be nonspecific. PAST MEDICAL HISTORY: CAD, status post bypass surgery; metastatic colon cancer; renal insufficiency; neuropathy; hypertension; diabetes mellitus; systolic heart failure; ischemic cardiomyopathy; depression; and continued tobacco abuse. PAST SURGICAL HISTORY: CABG x3 in 2015, knee surgery, and colon resection. SOCIAL HISTORY: Positive tobacco use. ALLERGIES: NONE. HOME MEDICATIONS: Include: 1. Celexa. 2. Imodium. 3. Glipizide. 4. Aspirin. 5. Iron. 6. Lorazepam. 7. Flomax. 8. NovoLog. 9. Lomotil. 10. Gabapentin. 11. Tylenol. 12. Atorvastatin. 13. Carvedilol. REVIEW OF SYSTEMS: A 10-point review of systems is reviewed as above, otherwise negative. PHYSICAL EXAMINATION: GENERAL: Patient is a pleasant male who is in no acute distress. He does appear much older than stated age. VITAL SIGNS: Blood pressure 116/64, pulse 71, and temperature 99.4. NEUROLOGIC: The patient is alert and oriented x3 with no focal neurologic deficits. HEENT: Sclerae without icterus. Mouth has moist mucous membranes with normal pallor. NECK: No JVD. Carotid upstroke brisk. No bruits bilaterally. LUNGS: Clear to auscultation with unlabored respirations. BACK: No scoliosis or kyphosis. CARDIAC: Regular rate and rhythm with normal S1 and S2. No S3 or S4 noted. No significant rubs, murmurs, thrills, or gallops noted throughout the precordium. PMI is not displaced. There is no parasternal heave. ABDOMEN: Soft, nontender, nondistended. No peritoneal signs present. No hepatosplenomegaly. No abnormal striae. EXTREMITIES: 2+ femoral and 2+ dorsalis pedis pulses. No cyanosis, clubbing, or edema. SKIN: No gross abnormalities. PERTINENT LABORATORY DATA: Creatinine 1.77. Hemoglobin 9.2. EKG; normal sinus rhythm with nonspecific ST-T wave changes. IMPRESSION: 1. Atypical chest pain. 2. Transient ischemic attack versus cerebrovascular accident. 3. Coronary artery disease. 4. Status post bypass surgery. RECOMMENDATIONS: At this point, Mr. Rivero is chest pain-free. His CKs and troponins are negative. His troponins again were trended negative. From my standpoint, we will continue with aggressive medical therapy. His symptoms were atypical. We would like to have the question answered and unknown whether he has had a TIA or stroke. May consider a noninvasive stress study versus continued medical therapy. We would prefer continue medical therapy if he continues to be pain free. Job ID: [id number]
--- NOTE | 2019-07-30 16:25 | ULT ---
BILATERAL CAROTID DUPLEX ULTRASOUND: HISTORY: Syncope and TIA TECHNIQUE: Grayscale, color-flow and spectral Doppler ultrasound imaging of the extracranial carotid artery syst ems and vertebral arteries was performed bilaterally. FINDINGS: There is mild intimal thickening involving the common carotid arteries bilaterally. There is mild ath erosclerotic plaque involving the proximal internal carotid arteries. The peak systolic velocity in the right ICA measures 79.8 cm/s. The peak systolic velocity in the ri ght CCA measures 110.1 cm/s. The peak systolic velocity in the left ICA measures 60.1 cm/s. The peak systolic velocity in the l eft CCA measures 86.1 cm/s. The right IC/CC ratio is0.72. The left IC/CC ratio is 0.96. Vertebral flow: antegrade, bilaterally. . IMPRESSION: No hemodynamically significant stenosis of Both ICAs.
[2019-07-30] MEDS: Nicotine 21 MG PATCH TD SCH (16:33)
[2019-07-30] MEDS ORDERED: Clopidogrel Bisulfate 75 MG TAB PO SCH (16:45)
[2019-07-30] MEDS: Atorvastatin Calcium 40 MG TAB PO SCH (20:41)
[2019-07-31] MEDS: Acetaminophen 325 MG TAB PO PRN ×3 (01:07→21:41)
[2019-07-31 05:38] LABS: #Eosinphils 0.2 thou/uL (0.0-0.7); #Lymphocytes 0.9 thou/uL (1.20-3.40); #Monocytes 0.5 thou/uL (0.11-0.59); #Neutrophils 4.6 thou/uL (1.40-6.50); %Basophils 0.2 % (0.0-1.0); %Eosinophils 3.2 % (0.0-10.0); %Lymphocytes 15.1 % (21.0-51.0); %Monocytes 7.5 % (0.0-10.0); %Neutrophils 74.1 % (42.0-75.0); Mean Corpuscular Hemoglobin 27.8 pg (27.0-31.0); Mean Corpuscular Volume 87.2 fL (78.0-98.0); Mean Platelet Volume 8.3 fL (7.4-10.4); Platelet Count 164 thou/uL (130-400); RBC Distribution Width 17.5 % (11.5-14.5); Red Blood Cell (RBC) Count 3.21 mill/uL (4.70-6.10); White Blood Cell (WBC) Count 6.2 thou/uL (4.8-10.8)
--- NOTE | 2019-07-31 05:52 | PDOC.FM ---
- Subjective Subjective: Pt states he did well overnight, he denies SOB, abdominal pain, or headache. He does endorse some nausea overnight that improved with medicine. He states that his numbness is improving in his right face and hand. In regards to InPt rehab, he states he has been at the [facility] before but was limited in his participation due to chronic diarrhea. - Objective MAR Reviewed: Yes Vital Signs & Weight: Vital Signs (12 hours) Temp Pulse Resp BP Pulse Ox 07/31/19 03:37 97.5 F L 64 16 196/80 H 95 07/31/19 01:10 65 167/70 H 07/31/19 00:00 97.4 F L 64 16 210/82 H 96 07/30/19 20:00 97.7 F 64 14 169/76 H 95 Weight Admit Weight 109.815 kg Weight 109.815 kg I&O: 07/29/19 07/30/19 07/31/19 06:59 06:59 06:59 Intake Total 120 Output Total 625 1150 Balance -505 -1150 Result Diagrams: 07/31/19 05:02 07/31/19 05:02 Phys Exam - Physical Examination Constitutional: NAD HEENT: moist MMs Neck: no JVD Respiratory: no wheezing, clear to auscultation bilateral Cardiovascular: RRR, no significant murmur Gastrointestinal: soft, non-tender, no distention, positive bowel sounds Musculoskeletal: pulses present, edema present (1+ pitting edema) Neurological: moves all 4 limbs Improving sensation, pt has subtle decreased coordination in RUE CN2-12 intact Psychiatric: normal affect, A&O x 3 Skin: normal turgor, cap refill <2 seconds Dx/Plan (1) PRATEEK (acute kidney injury) Code(s): N17.9 - ACUTE KIDNEY FAILURE, UNSPECIFIED Status: Acute (2) Atypical chest pain Code(s): R07.89 - OTHER CHEST PAIN Status: Acute (3) CAD (coronary artery disease) Code(s): I25.10 - ATHSCL HEART DISEASE OF [place] CORONARY ARTERY W/O ANG PCTRS Status: Acute Qualifiers: Coronary Disease-Associated Artery/Lesion type: bypass graft, autologous artery Associated angina: with stable angina Qualified Code(s): I25.728 - Atherosclerosis of autologous artery coronary artery bypass graft(s) with other forms of angina pectoris (4) CHF (congestive heart failure) Code(s): I50.9 - HEART FAILURE, UNSPECIFIED Status: Chronic (5) Colon cancer Code(s): C18.9 - MALIGNANT NEOPLASM OF COLON, UNSPECIFIED Status: Chronic (6) DMII (diabetes mellitus, type 2) Status: Chronic Qualifiers: Diabetes mellitus complication status: with neurologic complications Diabetes mellitus complication detail: with polyneuropathy (7) Depression Code(s): F32.9 - MAJOR DEPRESSIVE DISORDER, SINGLE EPISODE, UNSPECIFIED Status : Chronic (8) HTN (hypertension) Code(s): I10 - ESSENTIAL (PRIMARY) HYPERTENSION Status: Chronic (9) TIA (transient ischemic attack) Code(s): G45.9 - TRANSIENT CEREBRAL ISCHEMIC ATTACK, UNSPECIFIED Status: Suspected - Plan Plan: This is a 53 yo male with a pmh of HTN, DM2, CAD, CHF, CKD CVA -RUE with R-facial numbness/paresthesias -CT negative -MRI shows a subcentimeter infarct in the right putamen and one in the left thalamus -FLP: stable, TSH: 2.59, Hgb A1c: 5.7 -Stroke team and neurology consulted -Carotid doppler shows no significant stenosis -Continue aspirin and add on atorvastatin -Starting losartan and coreg today Atypical chest pain -Troponins trending down -Cardiology consulted, will likely go forward with medical management -Consider stress test if his pain returns Elevated troponin -Trending down to 0.023 -Likely demand Elevated D-Dimer -CTA negative for PE PRATEEK on CKD3 -Will monitor with BMP -Likely 2/2 CHF -Bump in creatinine overnight, transition lasix to PO HFrEF -Echo in 11/2017 shows EF of 30-35% -Likely would benefit from outpt follow up -Continue PO lasix Colon Cancer -Currently undergoing chemotherapy -Dr. Terrell is oncologist CAD s/p CABG in 2016 DM2 -Hyper/hypoglycemic protocol in place, ACHS accuchecks, mild SSI -A1c: 5.7 -BG has been stable off of home meds Depression -Continue home meds Tobacco abuse -Nicotine patch, counseled on cessation Addendum - Attending - Attending Attestation Date/Time: 07/31/19 3436 I personally evaluated the patient and discussed the management with Dr. Fall. I agree with the History, Examination, Assessment and Plan documented above with any addition or exceptions noted below.
[2019-07-31 05:59] LABS: ALT (SGPT) Less than 7 U/L (8-55); AST (SGOT) 10 U/L (5-34); Albumin 2.5 g/dL (3.5-5.0); Alkaline Phosphatase 103 U/L (40-110); Anion Gap 10 mmol/L (10-20); BUN (Urea Nitrogen) 29 mg/dL (8.4-25.7); Bilirubin, Total 0.3 mg/dL (0.2-1.2); Calc. Creatinine Clearance 61 mL/min (70-130); Calcium 8.1 mg/dL (7.8-10.44); Carbon Dioxide 27 mmol/L (22-29); Chloride 107 mmol/L (98-107); Estimated GFR-MDRD 32; Globulin 2.9 g/dL (2.4-3.5); Glucose 135 mg/dL (70-105); Potassium 3.8 mmol/L (3.5-5.1); Protein, Total 5.4 g/dL (6.0-8.3); Sodium 140 mmol/L (136-145)
[2019-07-31] MEDS ORDERED: Lactated Ringer's 500 ML IV SCH (06:15)
[2019-07-31] MEDS ORDERED: Furosemide 20 MG TAB PO SCH (07:00)
--- NOTE | 2019-07-31 08:32 | PRG ---
DATE OF SERVICE: SUBJECTIVE: Mr. Rivero is doing better. No recurrent episodes of chest pain. Blood pressure remains elevated. His recent MRI did suggest recent acute CVA. OBJECTIVE: VITAL SIGNS: Blood pressure 189/91, pulse 66, and temperature 97.8. LUNGS: Clear to auscultation. HEART: Regular rate and rhythm. ABDOMEN: Soft, nontender, and nondistended. EXTREMITIES: No edema. PERTINENT LABORATORY DATA: Hemoglobin 9.0. Creatinine 2.1, which is up from 1.77. IMPRESSION: 1. Chest pressure. 2. Coronary artery disease. 3. Status post bypass surgery. 4. Metastatic colon cancer. 5. Recent cerebrovascular accident. 6. Hypertension. RECOMMENDATIONS: 1. Recent troponin and EKG negative for acute ischemia. 2. Continue conservative therapy. 3. Add Norvasc 5 mg one p.o. q.a.m. 4. Hold losartan secondary to increase in creatinine. 5. Consider event recorder if Neurology feels recent CVA was embolic. Job ID: [id number]
[2019-07-31] MEDS: Aspirin 81 mg Enteric Coated Tablet PO SCH (08:44)
[2019-07-31] MEDS: Amlodipine 5 MG TAB PO SCH (08:44)
[2019-07-31] MEDS: Furosemide 40 MG TAB PO SCH (08:44)
[2019-07-31] MEDS: Carvedilol 3.125 MG TAB PO SCH ×2 (08:44→16:54)
[2019-07-31] MEDS: Citalopram 20 MG TAB PO SCH (08:45)
[2019-07-31] MEDS: Clopidogrel Bisulfate 75 MG TAB PO SCH (08:45)
[2019-07-31] MEDS: Enoxaparin Sodium 40 MG/0.4 ML SYRINGE SC SCH (08:45)
[2019-07-31] MEDS: Gabapentin 300 MG CAP PO SCH ×3 (08:50→21:41)
[2019-07-31] MEDS ORDERED: Losartan 25 MG TAB PO SCH ×2 (09:00)
[2019-07-31] MEDS ORDERED: Lisinopril 5 MG TAB PO SCH (09:00)
[2019-07-31] MEDS: Nicotine 21 MG PATCH TD SCH (15:01)
[2019-07-31] MEDS ORDERED: Polyethylene Glycol 3350 17 GM Packet PO PRN (17:11)
--- NOTE | 2019-07-31 20:37 | CON ---
DATE OF CONSULTATION: 07/31/2019 CONSULTING PHYSICIAN: Hospitalist Service. IMPRESSION: 1. Small vessel stroke in the left thalamus resulting in some right-sided numbness. 2. 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 3. Colon cancer. 4. Coronary artery disease status post coronary artery bypass graft. 5. Hypertension with minimal cardiomyopathy. PLAN: 1. Continue aspirin and a statin. 2. Add Plavix 75 mg per day. 3. The patient is anticipated transfer to inpatient therapy. Numerous medical problems. He presented with acute onset of right-sided numbness. He denies it really had any affect on his speech or gait. His MRI revealed 2 acute areas of punctate ischemic injury, one in the right putamen and the other in the left thalamus. His symptoms have improved somewhat. He reports that he is typically in a wheelchair and has some pretty poor balance secondary to his peripheral neuropathy. His echocardiogram showed a 55% ejection fraction. His carotid ultrasound did not show any stenosis. He denies any past history of stroke. He is undergoing active chemotherapy for colon cancer. PAST MEDICAL HISTORY: As listed above. ALLERGIES: PENICILLIN. SOCIAL HISTORY: No alcohol or illicit drug use. FAMILY HISTORY: Noncontributory. REVIEW OF SYSTEMS: Ten-system review of systems is otherwise unremarkable. PHYSICAL EXAMINATION: GENERAL: He is a well-nourished, middle-aged male, sitting up in bed, in no acute distress. VITAL SIGNS: Have been stable. He is afebrile. HEENT: Pupils are equal. Conjunctivae are clear. Oropharynx is clear. Cranium, normocephalic and atraumatic. NECK: Supple, no lymphadenopathy. EXTREMITIES: No cyanosis or edema. NEUROLOGIC: He is alert and cooperative. His speech is fluent and clear. Cranial nerves are intact. Motor exam shows good strength bilaterally. There is no fix or drift. Motor strength in the lower extremities shows some intrinsic weakness in the foot muscles. Sensory testing shows a stocking distribution sensory loss to touch up to the knees. Gait is not tested. No abnormal movements are seen. IMAGING DATA: EKG shows a sinus rhythm. SUMMARY: A middle-aged man with multiple medical problems. He suffered a lacunar infarction despite aspirin and a statin. I agree with adding Plavix. His deficits are minimal from the standpoint of his acute changes. His chronic issues have resulted in some progressive debilitation and gait difficulties. Inpatient rehab would seem reasonable. Job ID: [id number]
[2019-07-31] MEDS: Atorvastatin Calcium 40 MG TAB PO SCH (21:42)
[2019-07-31] MEDS: Benzonatate 100 MG CAP PO PRN (22:11)
[2019-07-31] MEDS: guaiFENesin ER 600 MG TAB PO PRN (22:11)
--- NOTE | 2019-08-01 04:45 | PDOC.FM ---
- Subjective Subjective: Pt denies chest pain, headache, SOB, nausea, or vomiting. He states the numbness is about the same. He does not endorse any new weakness or other neurological changes. He states he has had increased bowel movements but states this is just a phase for him. He is nervous about his 's CABG and believes this is contributing to his elevated BP. - Objective MAR Reviewed: Yes Vital Signs & Weight: Vital Signs (12 hours) Temp Pulse Resp BP Pulse Ox 07/31/19 23:56 98.9 F 71 20 98 07/31/19 23:00 162/64 H 07/31/19 20:00 98 Weight Admit Weight 109.815 kg Weight 109.815 kg I&O: 07/30/19 07/31/19 08/01/19 06:59 06:59 06:59 Intake Total 120 1380 Output Total 625 1150 1400 Balance -505 -1150 -20 Result Diagrams: 08/01/19 05:27 08/01/19 05:27 Phys Exam - Physical Examination Constitutional: NAD HEENT: moist MMs Neck: no JVD Respiratory: no wheezing, clear to auscultation bilateral Cardiovascular: RRR, no significant murmur Gastrointestinal: soft, non-tender, no distention, positive bowel sounds Musculoskeletal: pulses present, edema present (trace) Neurological: moves all 4 limbs Neuroexam is unchanged Psychiatric: A&O x 3 Skin: cap refill <2 seconds Dx/Plan (1) PRATEEK (acute kidney injury) Code(s): N17.9 - ACUTE KIDNEY FAILURE, UNSPECIFIED Status: Acute (2) Atypical chest pain Code(s): R07.89 - OTHER CHEST PAIN Status: Acute (3) CAD (coronary artery disease) Code(s): I25.10 - ATHSCL HEART DISEASE OF [place] CORONARY ARTERY W/O ANG PCTRS Status: Acute Qualifiers: Coronary Disease-Associated Artery/Lesion type: bypass graft, autologous artery Associated angina: with stable angina Qualified Code(s): I25.728 - Atherosclerosis of autologous artery coronary artery bypass graft(s) with other forms of angina pectoris (4) CHF (congestive heart failure) Code(s): I50.9 - HEART FAILURE, UNSPECIFIED Status: Chronic (5) Colon cancer Code(s): C18.9 - MALIGNANT NEOPLASM OF COLON, UNSPECIFIED Status: Chronic (6) DMII (diabetes mellitus, type 2) Status: Chronic Qualifiers: Diabetes mellitus complication status: with neurologic complications Diabetes mellitus complication detail: with polyneuropathy (7) Depression Code(s): F32.9 - MAJOR DEPRESSIVE DISORDER, SINGLE EPISODE, UNSPECIFIED Status : Chronic (8) HTN (hypertension) Code(s): I10 - ESSENTIAL (PRIMARY) HYPERTENSION Status: Chronic (9) TIA (transient ischemic attack) Code(s): G45.9 - TRANSIENT CEREBRAL ISCHEMIC ATTACK, UNSPECIFIED Status: Suspected - Plan Plan: This is a 53 yo male with a pmh of HTN, DM2, CAD, CHF, CKD CVA -RUE with R-facial numbness/paresthesias -CT negative -MRI shows a subcentimeter infarct in the right putamen and one in the left thalamus -FLP: stable, TSH: 2.59, Hgb A1c: 5.7 -Stroke team and neurology consulted -Carotid doppler shows no significant stenosis -Continue aspirin and add on atorvastatin -Continue coreg, holding losartan due to bump in creatinine -Adding plavix -Plans for InPt rehab, pending case management and insurance approval Atypical chest pain -Troponins trending down -Cardiology consulted, will likely go forward with medical management -Consider stress test if his pain returns Elevated troponin -Trending down to 0.023 -Likely demand Elevated D-Dimer -CTA negative for PE PRATEEK on CKD3 -Will monitor with BMP -Likely 2/2 CHF -Bump in creatinine overnight, transition lasix to PO HFrEF -Echo in 11/2017 shows EF of 30-35% -Likely would benefit from outpt follow up -Continue PO lasix Colon Cancer -Currently undergoing chemotherapy -Dr. Terrell is oncologist CAD s/p CABG in 2016 DM2 -Hyper/hypoglycemic protocol in place, ACHS accuchecks, mild SSI -A1c: 5.7 -BG has been stable off of home meds Depression -Continue home meds Tobacco abuse -Nicotine patch, counseled on cessation Addendum - Attending - Attending Attestation Date/Time: 08/01/19 0901 I personally evaluated the patient and discussed the management with Dr. Fall. I agree with the History, Examination, Assessment and Plan documented above with any addition or exceptions noted below.
[2019-08-01] MEDS: hydrALAZINE 20 MG/ML VIAL SLOW IVP PRN (05:28)
[2019-08-01 06:01] LABS: #Eosinphils 0.3 thou/uL (0.0-0.7); #Lymphocytes 0.9 thou/uL (1.20-3.40); #Monocytes 0.5 thou/uL (0.11-0.59); #Neutrophils 5.2 thou/uL (1.40-6.50); %Basophils 0.4 % (0.0-1.0); %Eosinophils 3.7 % (0.0-10.0); %Lymphocytes 12.7 % (21.0-51.0); %Monocytes 7.3 % (0.0-10.0); %Neutrophils 75.9 % (42.0-75.0); Mean Corpuscular HGB CONC 31.9 g/dL (32.0-36.0); Mean Corpuscular Hemoglobin 27.8 pg (27.0-31.0); Mean Platelet Volume 7.7 fL (7.4-10.4); Platelet Count 208 thou/uL (130-400); RBC Distribution Width 17.3 % (11.5-14.5); White Blood Cell (WBC) Count 6.8 thou/uL (4.8-10.8)
[2019-08-01] MEDS: Furosemide 40 MG TAB PO SCH (06:01)
[2019-08-01 06:30] LABS: Anion Gap 11 mmol/L (10-20); BUN (Urea Nitrogen) 28 mg/dL (8.4-25.7); Calc. Creatinine Clearance 73 mL/min (70-130); Calcium 8.4 mg/dL (7.8-10.44); Carbon Dioxide 26 mmol/L (22-29); Chloride 105 mmol/L (98-107); Estimated GFR-MDRD 40; Glucose 88 mg/dL (70-105); Potassium 3.6 mmol/L (3.5-5.1); Sodium 138 mmol/L (136-145)
[2019-08-01 06:32] LABS: ALT (SGPT) 9 U/L (8-55); AST (SGOT) 14 U/L (5-34); Albumin 2.7 g/dL (3.5-5.0); Alkaline Phosphatase 104 U/L (40-110); Anion Gap 9 mmol/L (10-20); BUN (Urea Nitrogen) 29 mg/dL (8.4-25.7); Bilirubin, Total 0.5 mg/dL (0.2-1.2); Calc. Creatinine Clearance 71 mL/min (70-130); Calcium 8.5 mg/dL (7.8-10.44); Carbon Dioxide 27 mmol/L (22-29); Chloride 106 mmol/L (98-107); Estimated GFR-MDRD 38; Globulin 3.3 g/dL (2.4-3.5); Glucose 88 mg/dL (70-105); Potassium 3.6 mmol/L (3.5-5.1); Sodium 138 mmol/L (136-145)
[2019-08-01] MEDS ORDERED: hydrOXYzine 25 MG TAB PO SCH (07:00)
[2019-08-01] MEDS: Carvedilol 3.125 MG TAB PO SCH ×2 (08:56→17:46)
[2019-08-01] MEDS: Amlodipine 5 MG TAB PO SCH (08:56)
[2019-08-01] MEDS: Gabapentin 300 MG CAP PO SCH ×3 (08:57→20:34)
[2019-08-01] MEDS: Clopidogrel Bisulfate 75 MG TAB PO SCH (08:57)
[2019-08-01] MEDS: Acetaminophen 325 MG TAB PO PRN ×3 (08:57→18:39)
[2019-08-01] MEDS: Aspirin 81 mg Enteric Coated Tablet PO SCH (08:57)
[2019-08-01] MEDS: Citalopram 20 MG TAB PO SCH (08:57)
[2019-08-01] MEDS: Enoxaparin Sodium 40 MG/0.4 ML SYRINGE SC SCH (08:57)
--- NOTE | 2019-08-01 10:06 | PQF ---
JENNIFER GARCIA,MONA SJ LEONE *lisa [id number] [facility] [id number] CLINICAL DOCUMENTATION IMPROVEMENT CLARIFICATION FORM: ICD-10 Updated PLEASE DO AN ADDENDUM TO THE PROGRESS NOTE WITH ANY DOCUMENTATION UPDATES OR ADDITIONS AND CARRY THROUGH TO DC SUMMARY. THANK YOU. DATE: 08/01/19 ATTN: Dr. Fall Please exercise your independent, professional judgment in responding to the clarification form. Clinical indicators are provided on the bottom of this form for your review Please check appropriate box(s): HFrEF A. ACUITY [ ] Acute [ x ] Acute on Chronic [ ] Chronic [ ] Other diagnosis [ ] Unable to determine In addition, please specify: Present on Admission (POA): [ x ] Yes [ ] No [ ] Unable to determine For continuity of documentation, please document condition throughout progress notes and discharge summary. Thank You. CLINICAL INDICATORS - SIGNS / SYMPTOMS / LABS / RESULTS AND LOCATION IN EMR 07/30 (Juan David): "HFrEF-Echo in 11/2017 shows EF 30-35%" 07/29 CXR: mild pulmonary vascular promenence H&P(Klecan) Elevated BNP--> 07/29 lab: BNP 1425.7 H&P(Klecan): "CHF with mild exacerbation-reports his EF was as low as 30%" RISKS FACTORS / RESULTS AND LOCATION IN EMR History of "CAD/CKD/HTN" per H&P(Klecan) TREATMENTS / RESULTS AND LOCATION IN EMR Administration of BB--> coreg 3.125 mg PO BID 07/31 per orders ECHO 07/30 orders IV or PO Diuretics--> 07/30 lasix 40mg IV x2; Lasix 40mg po daily 07/31 per orders Cardiology Consult 07/30 orders (This form is maintained as a part of the permanent medical record) 2014 [employer]. All Rights Reserved Kavya Walker RN, BSN, CCDS [email or web address]
[2019-08-01] MEDS: guaiFENesin ER 600 MG TAB PO PRN ×2 (12:36→18:39)
[2019-08-01] MEDS: Nicotine 21 MG PATCH TD SCH (14:01)
[2019-08-01] MEDS: Benzonatate 100 MG CAP PO PRN (18:39)
[2019-08-01] MEDS: Atorvastatin Calcium 40 MG TAB PO SCH (20:34)
[2019-08-02] MEDS: Ondansetron ODT 4 MG TAB PO PRN (03:05)
[2019-08-02] MEDS: hydrALAZINE 20 MG/ML VIAL SLOW IVP PRN (03:52)
[2019-08-02] MEDS: Acetaminophen 325 MG TAB PO PRN ×2 (03:53→22:01)
[2019-08-02 05:06] LABS: #Eosinphils 0.2 thou/uL (0.0-0.7); #Lymphocytes 0.9 thou/uL (1.20-3.40); #Monocytes 0.8 thou/uL (0.11-0.59); #Neutrophils 5.7 thou/uL (1.40-6.50); %Basophils 0.2 % (0.0-1.0); %Eosinophils 3.2 % (0.0-10.0); %Lymphocytes 11.3 % (21.0-51.0); %Neutrophils 75.3 % (42.0-75.0); Hemoglobin 9.6 g/dL (14.0-18.0); Mean Corpuscular Hemoglobin 27.7 pg (27.0-31.0); Mean Corpuscular Volume 86.5 fL (78.0-98.0); Mean Platelet Volume 8.1 fL (7.4-10.4); Platelet Count 185 thou/uL (130-400); RBC Distribution Width 17.4 % (11.5-14.5); Red Blood Cell (RBC) Count 3.47 mill/uL (4.70-6.10); White Blood Cell (WBC) Count 7.5 thou/uL (4.8-10.8)
[2019-08-02 05:25] LABS: ALT (SGPT) 9 U/L (8-55); AST (SGOT) 13 U/L (5-34); Albumin 2.7 g/dL (3.5-5.0); Alkaline Phosphatase 104 U/L (40-110); Anion Gap 12 mmol/L (10-20); BUN (Urea Nitrogen) 29 mg/dL (8.4-25.7); Bilirubin, Total 0.5 mg/dL (0.2-1.2); Calc. Creatinine Clearance 70 mL/min (70-130); Calcium 8.1 mg/dL (7.8-10.44); Carbon Dioxide 24 mmol/L (22-29); Chloride 104 mmol/L (98-107); Estimated GFR-MDRD 38; Globulin 3.2 g/dL (2.4-3.5); Glucose 106 mg/dL (70-105); Potassium 3.9 mmol/L (3.5-5.1); Protein, Total 5.9 g/dL (6.0-8.3); Sodium 136 mmol/L (136-145)
--- NOTE | 2019-08-02 05:35 | PDOC.FM ---
- Subjective Subjective: Pt numbness is improving. He states he is feeling better neurologically but has been having more of a head cold and cough. He also states he has some vertigo with sitting up. - Objective MAR Reviewed: Yes Vital Signs & Weight: Vital Signs (12 hours) Temp Pulse Resp BP Pulse Ox 08/02/19 03:52 74 08/02/19 03:24 98.8 F 89 20 206/85 H 98 08/01/19 23:15 98.5 F 74 20 181/72 H 98 08/01/19 19:27 98.6 F 73 20 171/58 H 98 Weight Admit Weight 109.815 kg Weight 109.815 kg I&O: 07/31/19 08/01/19 08/02/19 06:59 06:59 06:59 Intake Total 1380 900 Output Total 1150 1950 700 Balance -1150 -570 200 Result Diagrams: 08/02/19 04:49 08/02/19 04:49 Phys Exam - Physical Examination Constitutional: NAD HEENT: moist MMs Neck: no JVD Respiratory: no wheezing, clear to auscultation bilateral Cardiovascular: RRR, no significant murmur Gastrointestinal: soft, non-tender, no distention, positive bowel sounds Musculoskeletal: no edema, pulses present Neurological: moves all 4 limbs Improving neuro exam, better coordination with cerebellar function Psychiatric: A&O x 3 Skin: cap refill <2 seconds Dx/Plan (1) PRATEEK (acute kidney injury) Code(s): N17.9 - ACUTE KIDNEY FAILURE, UNSPECIFIED Status: Acute (2) Atypical chest pain Code(s): R07.89 - OTHER CHEST PAIN Status: Acute (3) CAD (coronary artery disease) Code(s): I25.10 - ATHSCL HEART DISEASE OF [place] CORONARY ARTERY W/O ANG PCTRS Status: Acute Qualifiers: Coronary Disease-Associated Artery/Lesion type: bypass graft, autologous artery Associated angina: with stable angina Qualified Code(s): I25.728 - Atherosclerosis of autologous artery coronary artery bypass graft(s) with other forms of angina pectoris (4) CHF (congestive heart failure) Code(s): I50.9 - HEART FAILURE, UNSPECIFIED Status: Chronic (5) Colon cancer Code(s): C18.9 - MALIGNANT NEOPLASM OF COLON, UNSPECIFIED Status: Chronic (6) DMII (diabetes mellitus, type 2) Status: Chronic Qualifiers: Diabetes mellitus complication status: with neurologic complications Diabetes mellitus complication detail: with polyneuropathy (7) Depression Code(s): F32.9 - MAJOR DEPRESSIVE DISORDER, SINGLE EPISODE, UNSPECIFIED Status : Chronic (8) HTN (hypertension) Code(s): I10 - ESSENTIAL (PRIMARY) HYPERTENSION Status: Chronic (9) TIA (transient ischemic attack) Code(s): G45.9 - TRANSIENT CEREBRAL ISCHEMIC ATTACK, UNSPECIFIED Status: Suspected - Plan Plan: This is a 53 yo male with a pmh of HTN, DM2, CAD, CHF, CKD CVA -RUE with R-facial numbness/paresthesias -CT negative -MRI shows a subcentimeter infarct in the right putamen and one in the left thalamus -FLP: stable, TSH: 2.59, Hgb A1c: 5.7 -Stroke team and neurology consulted -Carotid doppler shows no significant stenosis -Continue aspirin and add on atorvastatin -Continue coreg, holding losartan due to bump in creatinine -Adding plavix -Plans for InPt rehab, pending case management and insurance approval Atypical chest pain -Troponins trending down -Cardiology consulted, will likely go forward with medical management -Consider stress test if his pain returns HTN -Increasing coreg -PRN hydralazine -Continue monitoring Elevated troponin -Trending down to 0.023 -Likely demand Elevated D-Dimer -CTA negative for PE PRATEEK on CKD3 -Will monitor with BMP -Likely 2/2 CHF -PO lasix HFrEF -Echo in 11/2017 shows EF of 30-35% -Likely would benefit from outpt follow up -Continue PO lasix Colon Cancer -Currently undergoing chemotherapy -Dr. Terrell is oncologist CAD s/p CABG in 2016 DM2 -Hyper/hypoglycemic protocol in place, ACHS accuchecks, mild SSI -A1c: 5.7 -BG has been stable off of home meds Depression -Continue home meds Tobacco abuse -Nicotine patch, counseled on cessation
[2019-08-02] MEDS: Furosemide 40 MG TAB PO SCH (06:38)
[2019-08-02] MEDS ORDERED: Scopolamine 1.5 mg/72 hour Patch TD SCH (07:00)
[2019-08-02] MEDS: Carvedilol 6.25 MG TAB PO SCH ×2 (08:51→18:07)
[2019-08-02] MEDS: Aspirin 81 mg Enteric Coated Tablet PO SCH (08:52)
[2019-08-02] MEDS: Amlodipine 5 MG TAB PO SCH (08:52)
[2019-08-02] MEDS: Citalopram 20 MG TAB PO SCH (08:52)
[2019-08-02] MEDS: Enoxaparin Sodium 40 MG/0.4 ML SYRINGE SC SCH (08:53)
[2019-08-02] MEDS: Gabapentin 300 MG CAP PO SCH ×3 (08:53→22:01)
[2019-08-02] MEDS: Clopidogrel Bisulfate 75 MG TAB PO SCH (08:53)
--- NOTE | 2019-08-02 12:04 | PRG ---
DATE OF SERVICE: 08/02/2019 Please see the note from Dr. Fall, for which I agree. Basically, this gentleman is here for rule out stroke. He is chronically wheelchair bound, known coronary artery disease, metastatic colon cancer, and plan is to get him to rehab. Really having only minimum-type stroke symptoms that all seemed to resolve fairly quickly, but just generalized deconditioning, weakness, etc. Also, having fairly intense vertigo today, but neurologic exam is normal. No nystagmus. Unclear of the etiology, but scopolamine patch was placed to see if that would help some. Can consider as needed dizziness medicines as well. I am waiting on rehab. Job ID: [id number]
[2019-08-02] MEDS: Nicotine 21 MG PATCH TD SCH (14:47)
[2019-08-02] MEDS: Atorvastatin Calcium 40 MG TAB PO SCH (22:01)
[2019-08-03 04:57] LABS: #Eosinphils 0.3 thou/uL (0.0-0.7); #Lymphocytes 0.9 thou/uL (1.20-3.40); #Monocytes 0.7 thou/uL (0.11-0.59); #Neutrophils 4.4 thou/uL (1.40-6.50); %Basophils 0.3 % (0.0-1.0); %Eosinophils 4.2 % (0.0-10.0); %Lymphocytes 14.1 % (21.0-51.0); %Monocytes 11.7 % (0.0-10.0); %Neutrophils 69.7 % (42.0-75.0); Hemoglobin 9.3 g/dL (14.0-18.0); Mean Corpuscular Hemoglobin 27.9 pg (27.0-31.0); Mean Corpuscular Volume 87.2 fL (78.0-98.0); Mean Platelet Volume 7.8 fL (7.4-10.4); Platelet Count 191 thou/uL (130-400); RBC Distribution Width 17.4 % (11.5-14.5); Red Blood Cell (RBC) Count 3.34 mill/uL (4.70-6.10); White Blood Cell (WBC) Count 6.3 thou/uL (4.8-10.8)
[2019-08-03 05:19] LABS: ALT (SGPT) 9 U/L (8-55); AST (SGOT) 13 U/L (5-34); Albumin 2.6 g/dL (3.5-5.0); Alkaline Phosphatase 95 U/L (40-110); Anion Gap 11 mmol/L (10-20); BUN (Urea Nitrogen) 30 mg/dL (8.4-25.7); Bilirubin, Total 0.4 mg/dL (0.2-1.2); Calc. Creatinine Clearance 62 mL/min (70-130); Calcium 8.3 mg/dL (7.8-10.44); Carbon Dioxide 25 mmol/L (22-29); Chloride 105 mmol/L (98-107); Estimated GFR-MDRD 33; Globulin 3.1 g/dL (2.4-3.5); Glucose 126 mg/dL (70-105); Protein, Total 5.7 g/dL (6.0-8.3); Sodium 137 mmol/L (136-145)
--- NOTE | 2019-08-03 05:40 | PDOC.FM ---
- Subjective Subjective: Pt states he was dizzy yesterday when getting up to walk. He also reports an increase cough. He denies any new weakness and states his numbness and tingling is improving. - Objective MAR Reviewed: Yes Vital Signs & Weight: Vital Signs (12 hours) Temp Pulse Resp BP BP Pulse Ox 08/03/19 03:25 98.4 F 64 16 132/51 L 88 L 08/02/19 23:24 98 F 67 16 174/72 H 98 08/02/19 19:37 98.5 F 68 16 151/74 H 95 08/02/19 18:07 127/64 Weight Admit Weight 109.815 kg Weight 109.815 kg I&O: 08/01/19 08/02/19 08/03/19 06:59 06:59 06:59 Intake Total 1380 900 790 Output Total 9179 973 2228 Balance -570 200 -1160 Result Diagrams: 08/03/19 04:44 08/03/19 04:44 Phys Exam - Physical Examination Constitutional: NAD HEENT: moist MMs Neck: no JVD Respiratory: no wheezing Crackles to left lung calabrese Cardiovascular: RRR, no significant murmur Gastrointestinal: soft, non-tender, no distention, positive bowel sounds Musculoskeletal: pulses present, edema present (trace) Neurological: moves all 4 limbs Psychiatric: A&O x 3 Skin: cap refill <2 seconds Dx/Plan (1) PRATEEK (acute kidney injury) Code(s): N17.9 - ACUTE KIDNEY FAILURE, UNSPECIFIED Status: Acute (2) Atypical chest pain Code(s): R07.89 - OTHER CHEST PAIN Status: Acute (3) CAD (coronary artery disease) Code(s): I25.10 - ATHSCL HEART DISEASE OF [place] CORONARY ARTERY W/O ANG PCTRS Status: Acute Qualifiers: Coronary Disease-Associated Artery/Lesion type: bypass graft, autologous artery Associated angina: with stable angina Qualified Code(s): I25.728 - Atherosclerosis of autologous artery coronary artery bypass graft(s) with other forms of angina pectoris (4) CHF (congestive heart failure) Code(s): I50.9 - HEART FAILURE, UNSPECIFIED Status: Chronic (5) Colon cancer Code(s): C18.9 - MALIGNANT NEOPLASM OF COLON, UNSPECIFIED Status: Chronic (6) DMII (diabetes mellitus, type 2) Status: Chronic Qualifiers: Diabetes mellitus complication status: with neurologic complications Diabetes mellitus complication detail: with polyneuropathy (7) Depression Code(s): F32.9 - MAJOR DEPRESSIVE DISORDER, SINGLE EPISODE, UNSPECIFIED Status : Chronic (8) HTN (hypertension) Code(s): I10 - ESSENTIAL (PRIMARY) HYPERTENSION Status: Chronic (9) TIA (transient ischemic attack) Code(s): G45.9 - TRANSIENT CEREBRAL ISCHEMIC ATTACK, UNSPECIFIED Status: Suspected - Plan Plan: This is a 53 yo male with a pmh of HTN, DM2, CAD, CHF, CKD CVA -RUE with R-facial numbness/paresthesias -CT negative -MRI shows a subcentimeter infarct in the right putamen and one in the left thalamus -FLP: stable, TSH: 2.59, Hgb A1c: 5.7 -Stroke team and neurology consulted -Carotid doppler shows no significant stenosis -Continue aspirin and add on atorvastatin -Continue coreg, holding losartan due to bump in creatinine -Adding plavix -Plans for [facility], pt has been accepted, pending insurance approval, likely on Sunday Atypical chest pain -Troponins trending down -Cardiology consulted, will likely go forward with medical management -Consider stress test if his pain returns HTN -Increasing coreg -PRN hydralazine -Continue monitoring Elevated troponin -Trending down to 0.023 -Likely demand Elevated D-Dimer -CTA negative for PE PRATEEK on CKD3 -Will monitor with BMP -Likely 2/2 CHF -Stopping lasix. HFrEF -Echo in 11/2017 shows EF of 30-35% -Likely would benefit from outpt follow up Colon Cancer -Currently undergoing chemotherapy -Dr. Terrell is oncologist CAD s/p CABG in 2016 DM2 -Hyper/hypoglycemic protocol in place, ACHS accuchecks, mild SSI -A1c: 5.7 -BG has been stable off of home meds Depression -Continue home meds Tobacco abuse -Nicotine patch, counseled on cessation
[2019-08-03] MEDS ORDERED: Lactated Ringer's 500 ML IV SCH (05:45)
[2019-08-03] MEDS: Acetaminophen 325 MG TAB PO PRN (08:54)
[2019-08-03] MEDS: Citalopram 20 MG TAB PO SCH (08:54)
[2019-08-03] MEDS: Clopidogrel Bisulfate 75 MG TAB PO SCH (08:54)
[2019-08-03] MEDS: Gabapentin 300 MG CAP PO SCH ×3 (08:54→20:37)
[2019-08-03] MEDS: Carvedilol 6.25 MG TAB PO SCH ×2 (08:55→18:03)
[2019-08-03] MEDS: Amlodipine 5 MG TAB PO SCH ×2 (08:56→20:38)
[2019-08-03] MEDS: Enoxaparin Sodium 40 MG/0.4 ML SYRINGE SC SCH (08:56)
[2019-08-03] MEDS: Aspirin 81 mg Enteric Coated Tablet PO SCH (08:56)
--- NOTE | 2019-08-03 10:21 | RAD ---
Exam: Chest one view HISTORY:Cough Comparison: 07/29/2019 FINDINGS: Lines and tubes: Stable right-sided Port-A-Cath. Cardiac silhouette:Enlarged cardiac silhouette. Aorta: Atherosclerosis of the aortic knob Pulmonary vessels: Prominent. Costophrenic angles: Clear Stable sternotomy wires. LUNGS: Patchy interstitial opacities likely representing edema Pneumothorax: None Osseous abnormalities: None IMPRESSION: Congestive heart failure.
--- NOTE | 2019-08-03 13:26 | PRG ---
DATE OF SERVICE: 08/03/2019 Please see the note from Dr. Fall, for which I agree. The patient is here status post stroke and numerous other medical problems including diabetes, neuropathy, legally being blind, coronary artery disease, etc. Everything is fairly stable. He is having a little bit of vertigo, although better than yesterday. Plan is to place him in rehab tomorrow. I think he has already got a bed. His everything else has been fairly stable and no new changes on exam. Job ID: [id number]
[2019-08-03] MEDS: Nicotine 21 MG PATCH TD SCH (15:50)
[2019-08-03] MEDS: Benzonatate 100 MG CAP PO PRN (18:10)
[2019-08-03] MEDS: Ondansetron PF 4 MG/2 ML Vial IVP PRN (18:14)
[2019-08-03] MEDS: Atorvastatin Calcium 40 MG TAB PO SCH (20:37)
[2019-08-03] MEDS ORDERED: diphenhydrAMINE 25 MG CAP PO SCH (21:45)
[2019-08-03] MEDS: hydrALAZINE 20 MG/ML VIAL SLOW IVP PRN (22:47)
[2019-08-04] MEDS: Ondansetron ODT 4 MG TAB PO PRN ×2 (01:26→09:03)
[2019-08-04] MEDS: guaiFENesin ER 600 MG TAB PO PRN (01:32)
[2019-08-04] MEDS: Acetaminophen 325 MG TAB PO PRN ×2 (01:32→09:02)
[2019-08-04 06:07] LABS: #Eosinphils 0.3 thou/uL (0.0-0.7); #Lymphocytes 0.9 thou/uL (1.20-3.40); #Monocytes 0.7 thou/uL (0.11-0.59); %Basophils 0.3 % (0.0-1.0); %Eosinophils 4.5 % (0.0-10.0); %Lymphocytes 15.3 % (21.0-51.0); Hemoglobin 9.2 g/dL (14.0-18.0); Mean Corpuscular HGB CONC 31.7 g/dL (32.0-36.0); Mean Corpuscular Hemoglobin 27.6 pg (27.0-31.0); Mean Corpuscular Volume 86.8 fL (78.0-98.0); Mean Platelet Volume 7.6 fL (7.4-10.4); Platelet Count 195 thou/uL (130-400); Red Blood Cell (RBC) Count 3.35 mill/uL (4.70-6.10); White Blood Cell (WBC) Count 5.9 thou/uL (4.8-10.8)
[2019-08-04 06:34] LABS: ALT (SGPT) 10 U/L (8-55); AST (SGOT) 14 U/L (5-34); Albumin 2.5 g/dL (3.5-5.0); Alkaline Phosphatase 93 U/L (40-110); Anion Gap 11 mmol/L (10-20); BUN (Urea Nitrogen) 31 mg/dL (8.4-25.7); Bilirubin, Total 0.7 mg/dL (0.2-1.2); Calc. Creatinine Clearance 61 mL/min (70-130); Calcium 8.3 mg/dL (7.8-10.44); Carbon Dioxide 23 mmol/L (22-29); Chloride 105 mmol/L (98-107); Estimated GFR-MDRD 32; Globulin 3.3 g/dL (2.4-3.5); Glucose 90 mg/dL (70-105); Protein, Total 5.8 g/dL (6.0-8.3); Sodium 135 mmol/L (136-145)
--- NOTE | 2019-08-04 06:41 | PDOC.FM ---
- Subjective Subjective: Mr. Rivero doing well today, still having right sided numbness/tingling that is overall improved. No problems swallowing. Had episode of wide complex tachycardia but patient was asx during this time saying he had no issues overnight. - Objective MAR Reviewed: Yes Vital Signs & Weight: Vital Signs (12 hours) Temp Pulse Resp BP BP Pulse Ox 08/04/19 04:00 98.9 F 67 20 122/50 L 94 L 08/04/19 00:00 99 F 69 18 157/68 H 92 L 08/03/19 22:47 72 189/75 H 08/03/19 20:38 72 198/92 H 08/03/19 20:00 97.9 F 69 20 199/92 H 98 Weight Admit Weight 109.815 kg Weight 109.815 kg I&O: 08/02/19 08/03/19 08/04/19 06:59 06:59 06:59 Intake Total 632 650 1082 Output Total 700 1950 625 Balance 200 -1160 395 Result Diagrams: 08/04/19 06:00 08/04/19 06:00 Phys Exam - Physical Examination Constitutional: NAD HEENT: PERRLA, moist MMs, sclera anicteric Respiratory: no wheezing, clear to auscultation bilateral Cardiovascular: RRR, no significant murmur Gastrointestinal: soft, non-tender Neurological: non-focal, normal sensation, moves all 4 limbs equal, normal sensation on both upper & lower extremities nystagmus with right gaze Psychiatric: normal affect, A&O x 3 Deviation from normal: tattoos present Dx/Plan (1) Cerebrovascular event Code(s): I63.9 - CEREBRAL INFARCTION, UNSPECIFIED Status: Acute (2) PRATEEK (acute kidney injury) Code(s): N17.9 - ACUTE KIDNEY FAILURE, UNSPECIFIED Status: Acute (3) CHF (congestive heart failure) Code(s): I50.9 - HEART FAILURE, UNSPECIFIED Status: Chronic (4) Colon cancer Code(s): C18.9 - MALIGNANT NEOPLASM OF COLON, UNSPECIFIED Status: Chronic (5) HTN (hypertension) Code(s): I10 - ESSENTIAL (PRIMARY) HYPERTENSION Status: Chronic - Plan Plan: This is a 53 yo male with a pmh of HTN, DM2, CAD, CHF, CKD #CVA, right putamen and thalamic infarcts -RUE with R-facial numbness/paresthesias -CT negative -MRI shows a subcentimeter infarct in the right putamen and one in the left thalamus -FLP: stable, TSH: 2.59, Hgb A1c: 5.7 -Carotid doppler shows no significant stenosis -Continue aspirin, statin, plavix -Continue coreg, holding losartan due to bump in creatinine -Plans for [facility] re[facility], pt has been accepted, pending insurance approval, likely on Sunday #PRATEEK on CKD3 -stable from yesterday: 2.11 -> 2.15 -Will monitor with BMP, likely from rapid changes of BP from stroke -Likely 2/2 CHF -renal dose meds #HTN -labile blood pressures from SBP 122-190s, likely effects of stroke, autoregulating -with low-nml BPs will dec. coreg, continue to monitor, IV antihypertensives to cover for >180/>110 #Dizziness, positional -start meclizine -likely effects of stroke #Atypical chest pain -Troponins trending down -Cardiology consulted, will likely go forward with medical management -Consider stress test if his pain returns #Elevated troponin -Trending down to 0.023 -Likely demand #Elevated D-Dimer -CTA negative for PE #HFrEF -Echo in 11/2017 shows EF of 30-35% -Likely would benefit from outpt follow up #Colon Cancer -Currently undergoing chemotherapy -Dr. Terrell is oncologist #CAD s/p CABG in 2016 #DM2 -Hyper/hypoglycemic protocol in place, ACHS accuchecks, mild SSI -A1c: 5.7 -BG has been stable off of home meds #Depression -Continue home meds #Tobacco abuse -Nicotine patch, counseled on cessation dvt ppx: lovenox dispo: stable from CVA point of view- pending prior auth for [facility] will discuss w/ dr. wilder Addendum - Attending - Attending Attestation Date/Time: 08/04/19 [id number] I personally evaluated the patient and discussed the management with Dr. Elder I agree with the History, Examination, Assessment and Plan documented above with any addition or exceptions noted below. Patient will borderline high BP would avoid aggressive lowering of BP in setting of recent CVA. Continue titrate slowing and prn hypertensive rx. Continue trend RFT and maximize medical therapy. Patient c/o s/p partial colectomy for Colon Ca has occasional loose BM. Plan to transfer to Rehab for continued care s/p CVA as approved per insurance and bed availability.
[2019-08-04] MEDS: Citalopram 20 MG TAB PO SCH (09:02)
[2019-08-04] MEDS: Aspirin 81 mg Enteric Coated Tablet PO SCH (09:03)
[2019-08-04] MEDS: Enoxaparin Sodium 40 MG/0.4 ML SYRINGE SC SCH (09:03)
[2019-08-04] MEDS: Carvedilol 6.25 MG TAB PO SCH ×2 (09:03→17:13)
[2019-08-04] MEDS: Gabapentin 300 MG CAP PO SCH ×2 (09:03→14:36)
[2019-08-04] MEDS: Clopidogrel Bisulfate 75 MG TAB PO SCH (09:03)
[2019-08-04] MEDS: Amlodipine 5 MG TAB PO SCH (09:04)
[2019-08-04] MEDS ORDERED: Meclizine HCl 12.5 MG TAB PO PRN (10:00)
[2019-08-04] MEDS: Nicotine 21 MG PATCH TD SCH (14:36)
[2019-08-04 15:56] VITALS: TEMP 97.8
[2019-08-04 19:18] VITALS: BP 128/50
--- NOTE | 2019-08-05 13:29 | DIS ---
DATE OF ADMISSION: 07/30/2019 DATE OF DISCHARGE: 08/04/2019 ADMITTING ATTENDING: Dr. Peng Otero DISCHARGE ATTENDING: Dr. Kamari Kelley. RESIDENT: Lexi Elder MD, PGY-2. PROCEDURES: 1. Cardiology, Dr. Kellogg. 2. Neurology, Dr. Jones. 3. Cardiac Rehab. 4. CV Team. 5. Stroke Team. PRIMARY DIAGNOSES: 1. Ischemic CVA of right putamen and thalamus. 2. Acute kidney injury on chronic kidney disease 3. 3. Hypertension. 4. Benign paroxysmal positional vertigo. SECONDARY DIAGNOSES: 1. Heart failure with reduced ejection fraction. 2. Colon cancer. 3. Coronary artery disease, status post coronary artery bypass graft. 4. Type 2 diabetes. 5. Depression. 6. Tobacco abuse. PROCEDURES AND IMAGIN. Brain CT, no acute findings. 2. Chest x-ray, borderline pulmonary vascular prominence with no fluid edema. Presence of Port-A-Cath. 3. Chest, thorax CTA, no evidence of PE. 4. Brain MRI, two subcentimeter foci of acute infarction are noted, one just lateral and posterior to the right putamen and one within the posterior lateral aspect of the left thalamus. 5. Venogram, negative of DVT. 6. Carotid Doppler, no hemodynamically significant stenosis of both ICAs. 7. Chest x-ray, congestive heart failure. DISCHARGE MEDICATIONS: 1. Norvasc 5 mg p.o. b.i.d. 2. Tessalon 100 mg p.o. t.i.d. p.r.n. for cough. 3. Tums. 4. Coreg 2.5 mg p.o. b.i.d. 5. Celexa 40 mg p.o. daily. 6. Plavix 75 mg p.o. daily. 7. Lovenox 40 mg p.o. subcu. 8. Mucinex 600 mg p.o. q.6 hours p.r.n. for cough. 9. Hydralazine 10 mg p.o. IV push q.4 hours p.r.n. for BP greater than 180. 10. Meclizine 12.5 mg p.o. b.i.d. p.r.n. for dizziness. 11. Nicotine 21 mg transdermal patch. 12. Zofran 4 mg p.o. q.6 hours p.r.n. for nausea, vomiting. Resumed home medications: 1. Benadryl. 2. Tums. 3. Tylenol. 4. Neurontin 300 mg p.o. t.i.d. 5. Imodium. 6. Lorazepam. 7. Glipizide 5 mg p.o. b.i.d. 8. Aspirin 81 mg p.o. b.i.d. 9. mg p.o. at bedtime. 10. Ferrous sulfate 325 mg p.o. daily. 11. Celexa . Discontinued medications: Coreg 3.125 mg p.o. b.i.d. HISTORY OF PRESENT ILLNESS/HOSPITAL COURSE: Mr. Mat Maddox is a 53-year-old male with colon cancer, currently undergoing chemotherapy; history of CABG; type 2 diabetes; and CKD, who presented for right-sided numbness. He was admitted for stroke workup. MRI brain was pertinent for ischemic infarcts in the thalamus and putamen as detailed above. Neurology was consulted and he was started on Plavix and aspirin in addition to management of other comorbidities. For his colon cancer, he is currently undergoing chemotherapy. PE workup on this is negative despite elevated D-dimer. In regard to labile blood pressures and fevers, the patient's infectious workup was negative despite having some fevers. In addition, he had labile blood pressures. This all occurred after his stroke was thought to be due to autonomic dysfunction as a result of the thalamus and the putamen being affected. Due to residual stroke, the patient was sent over to inpatient facility to continue rehab. He was stable on day of discharge. It is interesting that the patient still suffered a lacunar infarct despite being on aspirin and statin, for which Plavix was added by Dr. Jones. The deficits were minimal, but he was sent over to rehab to continue regaining strength. He will need more aggressive management of his chronic issues. He was started on antihypertensives and some hydralazine p.r.n. to be given with repeat elevations of blood pressure. His prognosis to return residual function will be more noted in the next coming weeks. DISPOSITION: Stable. DISCHARGE INSTRUCTIONS: Location: Inpatient rehab. Diet: Heart healthy, diabetic diet. Activity: Ad stefano as tolerated. Work with physical therapy. FOLLOWUP: 1. He will follow up with Dr. Jones. 2. He will follow up with PCP. Job ID: [id number]
== END 2019-08-04 19:05 | DRG 64 ==
LOC: ERS 19:10 → OBSVTOIN 07-30 00:09 → 2SE 07-30 00:09
PROVIDERS: ADMIT Family Medicine; ATTEND Family Medicine
DX: I63.9 Cerebral infarction, unspecified (principal); I50.23 Acute on chronic systolic (congestive) heart failure; I13.0 Hypertensive heart and chronic kidney disease with heart failure and stage 1 through stage 4 chronic kidney disease, or unspecified chronic kidney disease; N17.9 Acute kidney failure, unspecified; C18.9 Malignant neoplasm of colon, unspecified; I16.1 Hypertensive emergency; N18.3 Chronic kidney disease, stage 3 (moderate); R07.89 Other chest pain; R42 Dizziness and giddiness; F32.9 Major depressive disorder, single episode, unspecified; F17.210 Nicotine dependence, cigarettes, uncomplicated; I25.10 Atherosclerotic heart disease of native coronary artery without angina pectoris; E11.42 Type 2 diabetes mellitus with diabetic polyneuropathy; E11.40 Type 2 diabetes mellitus with diabetic neuropathy, unspecified; I25.5 Ischemic cardiomyopathy; E11.22 Type 2 diabetes mellitus with diabetic chronic kidney disease; Z95.1 Presence of aortocoronary bypass graft; Z79.4 Long term (current) use of insulin; Z90.49 Acquired absence of other specified parts of digestive tract; Z88.0 Allergy status to penicillin; H54.8 Legal blindness, as defined in USA
CPT/HCPCS: 36415; 36416; 70450; 70551; 71045; 71275; 80053; 80061; 81003; 81015; 82550; 82553; 83036; 83690; 83880; 84145; 84443; 84484; 85025; 85379; 85610; 85730; 90471; 90670; 93005; 93306; 93880; 93970; 96361; 96374; 96376; G0009; J0360; J1650; J1940; J2405; Q0162; Q0163; Q9967